=== PATIENT | female | born 2005 | race Caucasian/White ===

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

== ENCOUNTER 2023-01-07 15:56 | Observation (INO) | payer OTHER ==
--- NOTE | 2023-01-07 17:46 | ED ---
General Adult HPI - General Source: patient Mode of arrival: ambulatory Limitations: no limitations <Davina Mchugh - Last Filed: 01/07/23 17:46> <Birgit Celeste - Last Filed: 01/07/23 22:35> - General Chief complaint: Nausea/Vomiting/Diarrhea Stated complaint: Nausea Time Seen by Provider: 01/07/23 17:46 - History of Present Illness Initial comments: 17-year-old female resents to the emergency department with chief complaint of generalized body aches, nausea, vomiting. She reports she is appro ximately 11 weeks . Denies vaginal bleeding vaginal cramping or back pain. (Davina Mchugh) Patient is a 17-year-old female 11 weeks who presents to the emergency department for intractable nausea and vomiting. I have evaluated this patient in the emergency department numerous times for intractable nausea and vomiting during . Patient follows a Dr. Ziegler she is prescribed Reglan and Zofran which are not working. She was recently prescribed promethazine however states now the pharmacies have it in stock. Patient states her vomiting is wo rse than ever before. She reports generalized body aches. She denies abdominal pain and vaginal bleeding. No fever chills or cold-like symptoms. No diarrhea or constipation. (Birgit Celeste) - Related Data Home Medications Medication Instructions Recorded Confirmed Famotidine [Pepcid] 20 mg PO BID 01/07/23 01/07/23 Metoclopramide HCl [Reglan] 5 mg PO Q8H PRN 01/07/23 01/07/23 Ondansetron Odt [Zofran Odt] 8 mg PO Q8HR PRN 01/07/23 01/07/23 Allergies Allergy/AdvReac Type Severity Reaction Status Date / Time No Known Allergies Allergy Verified 01/07/23 20:53 Review of Systems ROS Other: All systems not noted in ROS Statement are negative. <Davina Mchugh - Last Filed: 01/07/23 17:46> ROS Other: All systems not noted in ROS Statement are negative. <Birgit Celeste - Last Filed: 01/07/23 22:35> ROS Statement: Those systems with pertinent positive or pertinent negative responses have been documented in the HPI. Past Medical History Past Medical History: No Reported History History of Any Multi-Drug Resistant Organisms: None Reported Past Surgical History: No Surgical Hx Reported Past Anesthesia/Blood Transfusion Reactions: No Reported Reaction Past Psychological History: Depression Smoking Status: Never smoker Past Alcohol Use History: None Reported Past Drug Use History: None Reported <Davina cMhugh - Last Filed: 01/07/23 17:46> General Exam Limitations: no limitations <Davina Mchugh - Last Filed: 01/07/23 17:46> General appearance: alert, in no apparent distress Head exam: Present: atraumatic, normocephalic, normal inspection Eye exam: Present: PERRL, EOMI, scleral icterus, other (periorbital jaundice) Respiratory exam: Present: normal lung sounds bilaterally. Absent: respiratory distress, wheezes, rales, rhonchi, stridor Cardiovascular Exam: Present: regular rate, normal rhythm, normal heart sounds. Absent: systolic murmur, diastolic murmur, rubs, gallop, clicks GI/Abdominal exam: Present: soft, normal bowel sounds. Absent: distended, tenderness, guarding, rebound, rigid Neurological exam: Present: alert, oriented X3, CN II-XII intact Skin exam: Present: warm, dry, intact. Absent: normal color <Birgit Celeste - Last Filed: 01/07/23 22:35> - General Exam Comments Initial Comments: Visual Physical Exam Vital signs reviewed General: Well-appearing, nontoxic, no acute distress. Head: Normocephalic, atraumatic Eyes: PERRLA, EOMI ENT: Airway patent Chest: Nonlabored breathing Skin: No visual rash, normal skin tone Neuro: Alert and oriented 3 Musculoskeletal: No gross abnormalities (Davina Mchugh) Course Vital Signs 01/07/23 01/07/23 01/07/23 16:10 19:52 21:09 Temperature 97.8 F 98.4 F Pulse Rate 115 H 94 104 H Respiratory 18 16 18 Rate Blood Pressure 118/79 105/66 O2 Sat by Pulse 100 100 99 Oximetry 01/07/23 22:00 Temperature Pulse Rate 89 Respiratory 16 Rate Blood Pressure 120/73 O2 Sat by Pulse 99 Oximetry Medical Decision Making - Lab Data Result diagrams: 01/07/23 18:10 01/07/23 18:10 <Birgit Celeste - Last Filed: 01/07/23 22:35> - Medical Decision Making Was pt. sent in by a medical professional or institution (, [facility], BIOLOGICAL SCIENCES INSTRUCTOR, urgent care, hospital, or group home...) When possible be specific @ -No Did you speak to anyone other than the patient for history (EMS, parent, family, police, friend...)? What history was obtained from this source @ -No Did you review nursing and triage notes (agree or disagree)? Why? @ -I reviewed and agree with nursing and triage notes Were old charts reviewed (outside hosp., previous admission, EMS record, old EKG, old radiological studies, urgent care reports/EKG's, group home records)? Report findings @ -No old charts were reviewed Differential Diagnosis (chest pain, altered mental status, abdominal pain women, abdominal pain men, vaginal bleeding, weakness, fever, dyspnea, syncope, headache, dizziness, GI bleed, back pain, seizure, CVA, palpatations, mental health)? @ -Hyperemesis gravidarum, cyclic vomiting syndrome, bowel obstruction, upper respiratory infection, cholecystitis, cholestasis, cholelithiasis. This list is not mentally all-inclusive EKG interpreted by me (3pts min.). @ -As above X-rays interpreted by me (1pt min.). @ -None done CT interpreted by me (1pt min.). @ -None done U/S interpreted by me (1pt. min.). @ . Ultrasound report shows gallbladder sludge without evidence of cholelithiasis or cholecystitis What testing was considered but not performed or refused? (CT, X-rays, U/S, labs)? Why? @ -None What meds were considered but not given or refused? Why? @ -None Did you discuss the management of the patient with other professionals (professionals i.e. [facility], BIOLOGICAL SCIENCES INSTRUCTOR, lab, RT, psych nurse, healthcare social worker, product support sales representative, teacher, global safety officer, pillowcase cutter)? Give summary @ -Yes, Dr. Day. See hospital course. Was smoking cessation discussed for >3mins.? @ -No Was critical care preformed (if so, how long)? @ -No Were there social determinants of health that impacted care today? How? (Homelessness, low income, unemployed, alcoholism, drug addiction, tr ansportation, low edu. Level, literacy, decrease access to med. care, [facility] [facility], rehab)? @ -No Was there de-escalation of care discussed even if they declined (Discuss DNR or withdrawal of care, Hospice)? DNR status @ -No What co-morbidities impacted this encounter? (DM, HTN, Smoking, COPD, CAD, Cancer, CVA, ARF, Chemo, Hep., AIDS, mental health diagnosis, sleep apnea, morbid obesity)? @ -None Was patient admitted / discharged? Hospital course, mention meds given and route, prescriptions, significant lab abnormalities, going to OR and other pertinent info. @ -Patient presenting for intractable nausea and vomiting during first trimester . She is hemodynamically stable. Afebrile. There is mild scleral icterus and periorbital jaundice. Patient denies any itching. No abdominal pain and vaginal bleeding. Laboratory studies obtained. There is no leukocytosis. There is mild hypokalemia at 3.3. There is anion gap Metabolic acidosis, consistent with previous visits. Carbon dioxide is 16, anion gap at 23. Bilirubin is significantly elevated at 4.2. Liver enzymes are also elevated, AST is 74, ALT at 127. Vomiting controlled with several nausea medications in the emergency department. Patient given fluid bolus. I discussed case with Dr. Day who will keep patient for observation. She recommended Compazine suppositories and repeat l abs in the morning. Patient admitted in stable condition. Undiagnosed new problem with uncertain prognosis? @ -[No] Drug Therapy requiring intensive monitoring for toxicity (Heparin, Nitro, Insulin, Cardizem)? @ -[No] Were any procedures done? @ -[No] Diagnosis/symptom? @ -Hyperemesis gravidarum Acute, or Chronic, or Acute on Chronic? @ -Acute Uncomplicated (without systemic symptoms) or Complicated (systemic symptoms)? @ -Uncomplicated Side effects of treatment? @ -[No] Exacerbation, Progression, or Severe Exacerbation? @ -[No] Poses a threat to life or bodily function? How? (Chest pain, USA, PR, pneumonia, PE, COPD, DKA, ARF, appy, cholecystitis, CVA, Diverticulitis, Homicidal, Suicidal, threat to staff... and all critical care pts) @ -[No] Dr. Whitaker is my attending (Birgit Celeste) - Lab Data Lab Results 01/07/23 01/07/23 01/07/23 Range/Units 18:10 18:10 18:10 WBC 9.6 (4.0-11.0) k/uL RBC 5.28 (3.80-5.40) m/uL Hgb 16.4 H (11.4-16.0) gm/dL Hct 44.2 (34.0-46.0) % MCV 83.8 (80.0-100.0) fL MCH 31.2 (25.0-35.0) pg MCHC 37.2 H (31.0-37.0) g/dL RDW 13.0 (11.5-15.5) % Plt Count 429 (150-450) k/uL MPV 7.7 Neutrophils % 82 % Lymphocytes % 11 % Monocytes % 5 % Eosinophils % 0 % Basophils % 0 % Neutrophils # 7.9 H (1.3-7.7) k/uL Lymphocytes # 1.1 (1.0-4.8) k/uL Monocytes # 0.5 (0-1.0) k/uL Eosinophils # 0.0 (0-0.7) k/uL Basophils # 0.0 (0-0.2) k/uL Hyperchromasia Marked Poikilocytosis Slight Sodium 135 L (137-145) mmol/L Potassium 3.3 L (3.5-5.1) mmol/L Chloride 96 L (98-107) mmol/L Carbon Dioxide 16 L (22-30) mmol/L Anion Gap 23 mmol/L BUN 7 (7-17) mg/dL Creatinine 0.52 (0.52-1.04) mg/dL Est GFR (CKD-EPI)AfAm >90 (>60 ml/min/1.73 sqM) Est GFR (CKD-EPI)NonAf >90 (>60 ml/min/1.73 sqM) Glucose 101 H (74-99) mg/dL Calcium 10.6 H (8.4-10.2) mg/dL Total Bilirubin 4.2 H (0.2-1.3) mg/dL AST 74 H (14-36) U/L ALT 127 H (4-34) U/L Alkaline Phosphatase 113 (38-126) U/L Total Protein 8.8 H (6.3-8.2) g/dL Albumin 5.3 H (3.5-5.0) g/dL Urine Color Urine Appearance (Clear) Urine pH (5.0-8.0) Ur Specific Carlock (1.001-1.035) Urine Protein (Negative) Urine Glucose (UA) (Negative) Urine Ketones (Negative) Urine Blood (Negative) Urine Nitrite (Negative) Urine Bilirubin (Negative) Urine Urobilinogen (<2.0) mg/dL Ur Leukocyte Esterase (Negative) Urine RBC (0-5) /hpf Urine WBC (0-5) /hpf Ur Squamous Epith Cells (0-4) /hpf Urine Bacteria (None) /hpf Hyaline Casts (0-2) /lpf Urine Mucus (None) /hpf Influenza Type A (PCR) Not Detected (Not Detectd) Influenza Type B (PCR) Not Detected (Not Detectd) RSV (PCR) Not Detected (Not Detectd) SARS-CoV-2 (PCR) Not Detected (Not Detectd) 01/07/23 Range/Units 19:20 WBC (4.0-11.0) k/uL RBC (3.80-5.40) m/uL Hgb (11.4-16.0) gm/dL Hct (34.0-46.0) % MCV (80.0-100.0) fL MCH (25.0-35.0) pg MCHC (31.0-37.0) g/dL RDW (11.5-15.5) % Plt Count (150-450) k/uL MPV Neutrophils % % Lymphocytes % % Monocytes % % Eosinophils % % Basophils % % Neutrophils # (1.3-7.7) k/uL Lymphocytes # (1.0-4.8) k/uL Monocytes # (0-1.0) k/uL Eosinophils # (0-0.7) k/uL Basophils # (0-0.2) k/uL Hyperchromasia Poikilocytosis Sodium (137-145) mmol/L Potassium (3.5-5.1) mmol/L Chloride (98-107) mmol/L Carbon Dioxide (22-30) mmol/L Anion Gap mmol/L BUN (7-17) mg/dL Creatinine (0.52-1.04) mg/dL Est GFR (CKD-EPI)AfAm (>60 ml/min/1.73 sqM) Est GFR (CKD-EPI)NonAf (>60 ml/min/1.73 sqM) Glucose (74-99) mg/dL Calcium (8.4-10.2) mg/dL Total Bilirubin (0.2-1.3) mg/dL AST (14-36) U/L ALT (4-34) U/L Alkaline Phosphatase (38-126) U/L Total Protein (6.3-8.2) g/dL Albumin (3.5-5.0) g/dL Urine Color Dark Yellow Urine Appearance Cloudy H (Clear) Urine pH 6.0 (5.0-8.0) Ur Specific Carlock 1.031 (1.001-1.035) Urine Protein 2+ H (Negative) Urine Glucose (UA) Negative (Negative) Urine Ketones 4+ H (Negative) Urine Blood Trace H (Negative) Urine Nitrite Negative (Negative) Urine Bilirubin 2+ H (Negative) Urine Urobilinogen 12.0 (<2.0) mg/dL Ur Leukocyte Esterase Moderate H (Negative) Urine RBC 3 (0-5) /hpf Urine WBC 4 (0-5) /hpf Ur Squamous Epith Cells 8 H (0-4) /hpf Urine Bacteria Rare H (None) /hpf Hyaline Casts 7 H (0-2) /lpf Urine Mucus Few H (None) /hpf Influenza Type A (PCR) (Not Detectd) Influenza Type B (PCR) (Not Detectd) RSV (PCR) (Not Detectd) SARS-CoV-2 (PCR) (Not Detectd) Disposition <Davina Mchugh - Last Filed: 01/07/23 17:46> <Birgit Celeste - Last Filed: 01/07/23 22:35> Clinical Impression: Hyperemesis gravidarum Disposition: ADMITTED IP TO THIS HOSP Condition: Stable
[2023-01-07] MEDS ORDERED: SODIUM CHLORIDE 0.9% 1,000 ML IV STA ×3 (18:14→20:28)
[2023-01-07] MEDS ORDERED: PYRIDOXINE 100 MG/ML 1 ML VIAL IVP STA (18:15)
[2023-01-07] MEDS ORDERED: diphenhydrAMINE 50 MG/ML 1 ML VIAL IVP STA (18:15)
[2023-01-07] MEDS ORDERED: METOCLOPRAMIDE 5 MG/ML 2 ML VIAL IVP STA (18:16)
[2023-01-07] MEDS ORDERED: ACETAMINOPHEN IV (For NPO) 1,000 MG in EMPTY BAG 1 BAG IVPB STA (18:30)
[2023-01-07 18:53] LABS: Chloride 96 mmol/L (98-107)
[2023-01-07 18:55] LABS: ALT 127 U/L (4-34); AST 74 U/L (14-36); African American GFR (CKD) >90 (>60 ml/min/1.73 sqM); Albumin 5.3 g/dL (3.5-5.0); Alkaline Phosphatase 113 U/L (38-126); Anion Gap 23 mmol/L; Blood Urea Nitrogen 7 mg/dL (7-17); Calcium 10.6 mg/dL (8.4-10.2); Carbon Dioxide 16 mmol/L (22-30); Glucose 101 mg/dL (74-99); Non-African American GFR(CKD) >90 (>60 ml/min/1.73 sqM); Potassium 3.3 mmol/L (3.5-5.1); Sodium 135 mmol/L (137-145); Total Bilirubin 4.2 mg/dL (0.2-1.3); Total Protein 8.8 g/dL (6.3-8.2)
[2023-01-07 19:26] LABS: Basophils % (A) 0 %; Eosinophils % (A) 0 %; HCT 44.2 % (34.0-46.0); HGB 16.4 gm/dL (11.4-16.0); Hyperchromasia Marked; Lymphocytes # (A) 1.1 k/uL (1.0-4.8); Lymphocytes % (A) 11 %; MCH 31.2 pg (25.0-35.0); MCHC 37.2 g/dL (31.0-37.0); MCV 83.8 fL (80.0-100.0); Mean Platelet Volume 7.7; Monocytes # (A) 0.5 k/uL (0-1.0); Monocytes % (A) 5 %; Neutrophils # (A) 7.9 k/uL (1.3-7.7); Neutrophils % (A) 82 %; Platelet Count 429 k/uL (150-450); Poikilocytosis Slight; RBC 5.28 m/uL (3.80-5.40); WBC 9.6 k/uL (4.0-11.0)
[2023-01-07 19:39] LABS: Appearance,Urine Cloudy (Clear); Bacteria,Urine Rare /hpf; Bilirubin,Urine 2+ (Negative); Blood,Urine Trace (Negative); Color,Urine Dark Yellow; Glucose,Urine (UA) Negative (Negative); Hyaline Casts,Urine 7 /lpf (0-2); Ketones,Urine 4+ (Negative); Leukocyte Esterase,Urine Moderate (Negative); Mucus,Urine Few /hpf; Nitrite,Urine Negative (Negative); Protein,Urine 2+ (Negative); RBC,Urine 3 /hpf (0-5); Specific Gravity,Urine 1.031 (1.001-1.035); Squamous Epithelial Cell,Urine 8 /hpf (0-4); WBC,Urine 4 /hpf (0-5)
--- NOTE | 2023-01-07 19:59 | US ---
EXAMINATION TYPE: US abdomen limited DATE OF EXAM: 01/07/2023 COMPARISON: NONE CLINICAL INDICATION: Female, 17 years old with history of vomiting during , elevated bilirub in; N/V with . TECHNIQUE: Multiple sonographic images of the right upper quadrant are obtained. FINDINGS: EXAM MEASUREMENTS: Liver Length: 15.3 cm Gallbladder Wall: 0.1 cm CBD: 0.2 cm Right Kidney: 10.7 x 4.8 x 3.3 cm PROTEOMICS SCIENTIST NOTES: Pancreas: wnl Liver: wnl Gallbladder: Filled with sludge Evidence for sonographic Lyon's sign: No CBD: wnl Right Kidney: wnl Pancreas is within normal limits. The liver is within normal limits for evidence of focal lesion. Gal lbladder is sludge-filled without evidence of shadowing calculi, wall thickening, or pericholecystic fluid. Per utilization review rn, negative sonographic Lyon sign. Common bile duct within normal limits. Righ t kidney is unremarkable without evidence of hydronephrosis, renal calculi, or contour deforming justyna d mass. IMPRESSION: Gallbladder sludge without evidence for acute cholecystitis.
[2023-01-07] MEDS ORDERED: SCOPOLAMINE 1 MG/72 HR PATCH TRANSDERM STA (20:26)
[2023-01-07] MEDS ORDERED: PROCHLORPERAZINE SUPPOSITORY 25 MG SUPP RECTAL PRN (21:00)
[2023-01-07] MEDS ORDERED: diphenhydrAMINE 50 MG/ML 1 ML VIAL IVP PRN (23:19)
[2023-01-07] MEDS ORDERED: Potassium Replacement Protocol 1 EACH MISC MISCELLANE PRN (23:20)
[2023-01-07] MEDS: POTASSIUM CHLORIDE 10 MEQ in WATER FOR INJECTION 1 100ML.BAG IVPB SCH (23:36)
--- NOTE | 2023-01-07 23:36 | P.HPOB ---
History of Present Illness H&P Date: 01/07/23 Chief Complaint: hyperemesis gravidarum 17 year old presents at about 11 weeks gestation complaining of nausea and vomiting. She has been treated outpatient with zofran and reglan which are no longer helping. Last US was at 6 weeks. Review of Systems All systems: negative Constitutional: Denies chills, Denies fever Eyes: denies blurred vision, denies pain Ears, nose, mouth and throat: Denies headache, Denies sore throat Cardiovascular: Denies chest pain, Denies shortness of breath Respiratory: Denies cough Gastrointestinal: Reports nausea, Reports vomiting, Denies abdominal pain, Denies diarrhea Genitourinary: Denies dysuria, Denies hematuria Musculoskeletal: Denies myalgias Integumentary: Denies pruritus, Denies rash Neurological: Denies numbness, Denies weakness Psychiatric: Denies anxiety, Denies depression Endocrine: Denies fatigue, Denies weight change Past Medical History Past Medical History: No Reported History History of Any Multi-Drug Resistant Organisms: None Reported Past Surgical History: No Surgical Hx Reported Past Anesthesia/Blood Transfusion Reactions: No Reported Reaction Past Psychological History: Depression Smoking Status: Vaper Past Alcohol Use History: None Reported Past Drug Use History: Marijuana Additional Drug Use History / Comment(s): patient states she stopped vaping and marijuana use when she found out she was . - Past Family History Mother Family Medical History: No Reported History Father Family Medical History: No Reported History Medications and Allergies Home Medications Medication Instructions Recorded Confirmed Type Famotidine [Pepcid] 20 mg PO BID 01/07/23 01/07/23 History Metoclopramide HCl [Reglan] 5 mg PO Q8H PRN 01/07/23 01/07/23 History Ondansetron Odt [Zofran Odt] 8 mg PO Q8HR PRN 01/07/23 01/07/23 History Allergies Allergy/AdvReac Type Severity Reaction Status Date / Time No Known Allergies Allergy Verified 01/07/23 20:53 Exam Osteopathic Statement: *. No significant issues noted on an osteopathic structural exam other than those noted in the History and Physical/Consult. Vital Signs Temp Pulse Pulse Resp BP BP Pulse Ox 01/07/23 22:16 98.5 F 94 18 123/73 98 01/07/23 22:00 89 16 120/73 99 01/07/23 21:09 104 H 18 99 01/07/23 19:52 98.4 F 94 16 105/66 100 01/07/23 16:10 97.8 F 115 H 18 118/79 100 Intake and Output 01/07/23 01/07/23 01/08/23 14:59 22:59 06:59 Output Total 5 Balance -5 Output: Emesis 5 Other: Weight 68.039 kg Heart: Regular rate and rhythm Lungs: Clear to auscultation bilaterally Abdomen: Soft, nontender Extremities: Negative Homans sign Results Result Diagrams: 01/07/23 18:10 01/07/23 18:10 Abnormal Lab Results - Last 24 Hours (Table) 01/07/23 01/07/23 01/07/23 Range/Units 18:10 18:10 19:20 Hgb 16.4 H (11.4-16.0) gm/dL MCHC 37.2 H (31.0-37.0) g/dL Neutrophils # 7.9 H (1.3-7.7) k/uL Sodium 135 L (137-145) mmol/L Potassium 3.3 L (3.5-5.1) mmol/L Chloride 96 L (98-107) mmol/L Carbon Dioxide 16 L (22-30) mmol/L Glucose 101 H (74-99) mg/dL Calcium 10.6 H (8.4-10.2) mg/dL Total Bilirubin 4.2 H (0.2-1.3) mg/dL AST 74 H (14-36) U/L ALT 127 H (4-34) U/L Total Protein 8.8 H (6.3-8.2) g/dL Albumin 5.3 H (3.5-5.0) g/dL Urine Appearance Cloudy H (Clear) Urine Protein 2+ H (Negative) Urine Ketones 4+ H (Negative) Urine Blood Trace H (Negative) Urine Bilirubin 2+ H (Negative) Ur Leukocyte Esterase Moderate H (Negative) Ur Squamous Epith Cells 8 H (0-4) /hpf Urine Bacteria Rare H (None) /hpf Hyaline Casts 7 H (0-2) /lpf Urine Mucus Few H (None) /hpf Assessment and Plan (1) Hyperemesis gravidarum Current Visit: Yes Status: Acute Code(s): O21.0 - MILD HYPEREMESIS GRAVIDARUM SNOMED Code(s): 88403000 (2) Hypokalemia Current Visit: Yes Status: Acute Code(s): E87.6 - HYPOKALEMIA SNOMED Code(s): 57717545 Plan: 1. admit to [facility] 2. IV fluids 3. antiemetics
[2023-01-08] MEDS ORDERED: METOCLOPRAMIDE 5 MG/ML 2 ML VIAL IVP SCH
[2023-01-08] MEDS: POTASSIUM CHLORIDE 10 MEQ in WATER FOR INJECTION 1 100ML.BAG IVPB SCH ×3 (01:53→05:26)
[2023-01-08] MEDS: ONDANSETRON 4 MG/2 ML VIAL IVP PRN ×4 (03:12→22:10)
[2023-01-08 04:34] VITALS: RESP 16
[2023-01-08] MEDS: METOCLOPRAMIDE 5 MG/ML 2 ML VIAL IVP PRN ×3 (05:26→18:53)
[2023-01-08] MEDS: SODIUM CHLORIDE 0.9% 1,000 ML IV SCH ×3 (05:35→21:20)
[2023-01-08 09:09] LABS: Appearance,Urine Clear (Clear); Bilirubin,Urine 2+ (Negative); Blood,Urine Negative (Negative); Color,Urine Brown; Glucose,Urine (UA) Negative (Negative); Ketones,Urine 4+ (Negative); Leukocyte Esterase,Urine Negative (Negative); Mucus,Urine Few /hpf; Nitrite,Urine Negative (Negative); PH, Urine 6.5 (5.0-8.0); Protein,Urine 2+ (Negative); Specific Gravity,Urine 1.036 (1.001-1.035); Squamous Epithelial Cell,Urine 6 /hpf (0-4); Urobilinogen,Urine >12.0 mg/dL (<2.0); WBC,Urine 2 /hpf (0-5)
[2023-01-08 11:53] LABS: ALT 107 U/L (4-34); AST 67 U/L (14-36); African American GFR (CKD) >90 (>60 ml/min/1.73 sqM); Albumin 3.6 g/dL (3.5-5.0); Alkaline Phosphatase 74 U/L (38-126); Anion Gap 11 mmol/L; Blood Urea Nitrogen 6 mg/dL (7-17); Calcium 8.9 mg/dL (8.4-10.2); Carbon Dioxide 19 mmol/L (22-30); Chloride 102 mmol/L (98-107); Glucose 83 mg/dL (74-99); Non-African American GFR(CKD) >90 (>60 ml/min/1.73 sqM); Potassium 3.3 mmol/L (3.5-5.1); Sodium 132 mmol/L (137-145); Total Bilirubin 3.6 mg/dL (0.2-1.3); Total Protein 6.3 g/dL (6.3-8.2)
--- NOTE | 2023-01-08 14:30 | P.GSCN ---
History of Present Illness Consult date: 01/08/23 History of present illness: CHIEF COMPLAINT: Nausea and vomiting HISTORY OF PRESENT ILLNESS: This is a 17-year-old female who is at 11 weeks gestation complaining of nausea and vomiting. Patient reports that she has been dealing with vomiting since the beginning of her . She had been on Zofran and Reglan at home without improvement of her symptoms. Patient reports that she vomits up to 20 times a day. Her pain is located in the suprapubic area. She denies any right upper quadrant pain. She denies any fever chills or sweats. She has been having bowel movements. She was mildly tachycardic on admission. Ultrasound has shown evidence of gallbladder sludge. White count normal 9.6 she did have elevated total bilirubin of 4.2 and mildly elevated L FTs. Patient was able to eat breakfast this morning without vomiting. The last episode of emesis was at 3 AM. Patient reports having regular bowel movements. Denies any urinary symptoms. Patient denies any prior abdominal surgeries. PAST MEDICAL HISTORY: See below PAST SURGICAL HISTORY: See below MEDICATIONS: See below ALLERGIES: See below SOCIAL HISTORY: No illicit drug use. REVIEW OF SYSTEMS: CONSTITUTIONAL: Denies fever or chills. HEENT: Denies blurred vision, vision changes, or eye pain. Denies hemoptysis CARDIOVASCULAR: Denies chest pain or pressure. RESPIRATORY: No shortness of breath. GASTROINTESTINAL: See HPI for pertinent findings HEMATOLOGIC: Denies bleeding disorders. GENITOURINARY: Denies any blood in urine or increased urinary frequency. SKIN: Denies pruitis. Denies rash. PHYSICAL EXAM: VITAL SIGNS: Reviewed GENERAL: Well-developed in no acute distress. HEENT: No sclera icterus. Extraocular movements grossly intact. Moist buccal mucosa. Head is atraumatic, normocephalic. No nasal drainage. ABDOMEN: Soft. Nondistended. Tenderness to palpation in the suprapubic area NEUROLOGIC: Alert and oriented. Cranial nerves II through XII grossly intact. LABORATORY DATA: WBC is 9.6 Hgb 16.4 platelets 429 Na 132 potassium is 3.3 creatinine 0.46 Total bilirubin 4.2 down to 3.6 AST 74 down to 67 ALT 127 down to 107 alk phos 74 Urinalysis negative for infection Influenza, RSV and COVID-19 not detected IMAGING: Abdominal ultrasound shows gallbladder sludge without evidence for acute cholecystitis ASSESSMENT: 1. Hyperemesis 2. Gallbladder sludge without evidence of acute cholecystitis noted on abdominal ultrasound 3. Elevated total bilirubin and LFTs trending down 4. Hypokalemia patient received potassium supplements PLAN: -Further recommendations forthcoming per surgeon -Consult GI service regarding elevated total bilirubin and LFTs -Continue antiemetics -Repeat CMP in a.m. -Continue IV fluid -Continue regular diet -Check magnesium level due to recurrent hypokalemia Thank you for this consultation Physician Senior Ui Ux Designer note has been reviewed by physician. Signing provider agrees with the documented findings, assessment, and plan of care. I have personally seen and examined the patient, reviewed the SQUARING SHEAR OPERATOR /PAs history, exam and MDM and agree with the assessment and plan as written. Based on total visit time, I have performed more than 50% of the visit. As above: Patient with improving liver enzymes. No history of right upper quadrant abdominal pain. Await Dr. Rosado evaluation. Repeat labs tomorrow. Will follow. Past Medical History Past Medical History: No Reported History History of Any Multi-Drug Resistant Organisms: None Reported Past Surgical History: No Surgical Hx Reported Past Anesthesia/Blood Transfusion Reactions: No Reported Reaction Past Psychological History: Depression Smoking Status: Vaper Past Alcohol Use History: None Reported Past Drug Use History: Marijuana Additional Drug Use History / Comment(s): patient states she stopped vaping and marijuana use when she found out she was . - Past Family History Mother Family Medical History: No Reported History Father Family Medical History: No Reported History Medications and Allergies Home Medications Medication Instructions Recorded Confirmed Type Famotidine [Pepcid] 20 mg PO BID 01/07/23 01/07/23 History Metoclopramide HCl [Reglan] 5 mg PO Q8H PRN 01/07/23 01/07/23 History Ondansetron Odt [Zofran Odt] 8 mg PO Q8HR PRN 01/07/23 01/07/23 History Allergies Allergy/AdvReac Type Severity Reaction Status Date / Time No Known Allergies Allergy Verified 01/07/23 20:53 Surgical - Exam Vital Signs Temp Pulse Resp BP Pulse Ox 97.8 F 115 H 18 118/79 100 01/07/23 16:10 01/07/23 16:10 01/07/23 16:10 01/07/23 16:10 01/07/23 16:10 Results - Labs 01/07/23 18:10 01/08/23 18:04 Abnormal Lab Results - Last 24 Hours (Table) 01/07/23 01/07/23 01/07/23 Range/Units 18:10 18:10 19:20 Hgb 16.4 H (11.4-16.0) gm/dL MCHC 37.2 H (31.0-37.0) g/dL Neutrophils # 7.9 H (1.3-7.7) k/uL Sodium 135 L (137-145) mmol/L Potassium 3.3 L (3.5-5.1) mmol/L Chloride 96 L (98-107) mmol/L Carbon Dioxide 16 L (22-30) mmol/L BUN (7-17) mg/dL Creatinine (0.52-1.04) mg/dL Glucose 101 H (74-99) mg/dL Calcium 10.6 H (8.4-10.2) mg/dL Total Bilirubin 4.2 H (0.2-1.3) mg/dL AST 74 H (14-36) U/L ALT 127 H (4-34) U/L Total Protein 8.8 H (6.3-8.2) g/dL Albumin 5.3 H (3.5-5.0) g/dL Urine Appearance Cloudy H (Clear) Ur Specific [place] (1.001-1.035) Urine Protein 2+ H (Negative) Urine Ketones 4+ H (Negative) Urine Blood Trace H (Negative) Urine Bilirubin 2+ H (Negative) Ur Leukocyte Esterase Moderate H (Negative) Ur Squamous Epith Cells 8 H (0-4) /hpf Urine Bacteria Rare H (None) /hpf Hyaline Casts 7 H (0-2) /lpf Urine Mucus Few H (None) /hpf 01/08/23 01/08/23 Range/Units 07:30 10:51 Hgb (11.4-16.0) gm/dL MCHC (31.0-37.0) g/dL Neutrophils # (1.3-7.7) k/uL Sodium 132 L (137-145) mmol/L Potassium 3.3 L (3.5-5.1) mmol/L Chloride (98-107) mmol/L Carbon Dioxide 19 L (22-30) mmol/L BUN 6 L (7-17) mg/dL Creatinine 0.46 L (0.52-1.04) mg/dL Glucose (74-99) mg/dL Calcium (8.4-10.2) mg/dL Total Bilirubin 3.6 H (0.2-1.3) mg/dL AST 67 H (14-36) U/L ALT 107 H (4-34) U/L Total Protein (6.3-8.2) g/dL Albumin (3.5-5.0) g/dL Urine Appearance (Clear) Ur Specific [place] 1.036 H (1.001-1.035) Urine Protein 2+ H (Negative) Urine Ketones 4+ H (Negative) Urine Blood (Negative) Urine Bilirubin 2+ H (Negative) Ur Leukocyte Esterase (Negative) Ur Squamous Epith Cells 6 H (0-4) /hpf Urine Bacteria (None) /hpf Hyaline Casts (0-2) /lpf Urine Mucus Few H (None) /hpf Diabetes panel 01/07/23 01/08/23 Range/Units 18:10 10:51 Sodium 135 L 132 L (137-145) mmol/L Potassium 3.3 L 3.3 L (3.5-5.1) mmol/L Chloride 96 L 102 (98-107) mmol/L Carbon Dioxide 16 L 19 L (22-30) mmol/L BUN 7 6 L (7-17) mg/dL Creatinine 0.52 0.46 L (0.52-1.04) mg/dL Glucose 101 H 83 (74-99) mg/dL Calcium 10.6 H 8.9 (8.4-10.2) mg/dL AST 74 H 67 H (14-36) U/L ALT 127 H 107 H (4-34) U/L Alkaline Phosphatase 113 74 (38-126) U/L Total Protein 8.8 H 6.3 (6.3-8.2) g/dL Albumin 5.3 H 3.6 (3.5-5.0) g/dL Calcium panel 01/07/23 01/08/23 Range/Units 18:10 10:51 Calcium 10.6 H 8.9 (8.4-10.2) mg/dL Albumin 5.3 H 3.6 (3.5-5.0) g/dL Pituitary panel 01/07/23 01/08/23 Range/Units 18:10 10:51 Sodium 135 L 132 L (137-145) mmol/L Potassium 3.3 L 3.3 L (3.5-5.1) mmol/L Chloride 96 L 102 (98-107) mmol/L Carbon Dioxide 16 L 19 L (22-30) mmol/L BUN 7 6 L (7-17) mg/dL Creatinine 0.52 0.46 L (0.52-1.04) mg/dL Glucose 101 H 83 (74-99) mg/dL Calcium 10.6 H 8.9 (8.4-10.2) mg/dL Adrenal panel 01/07/23 01/08/23 Range/Units 18:10 10:51 Sodium 135 L 132 L (137-145) mmol/L Potassium 3.3 L 3.3 L (3.5-5.1) mmol/L Chloride 96 L 102 (98-107) mmol/L Carbon Dioxide 16 L 19 L (22-30) mmol/L BUN 7 6 L (7-17) mg/dL Creatinine 0.52 0.46 L (0.52-1.04) mg/dL Glucose 101 H 83 (74-99) mg/dL Calcium 10.6 H 8.9 (8.4-10.2) mg/dL Total Bilirubin 4.2 H 3.6 H (0.2-1.3) mg/dL AST 74 H 67 H (14-36) U/L ALT 127 H 107 H (4-34) U/L Alkaline Phosphatase 113 74 (38-126) U/L Total Protein 8.8 H 6.3 (6.3-8.2) g/dL Albumin 5.3 H 3.6 (3.5-5.0) g/dL
--- NOTE | 2023-01-08 15:00 | P.CONS ---
History of Present Illness - Reason for Consult Consult date: 01/08/23 Possible choledocholithiasis, hyperemesis Requesting physician: Gagandeep Kirkland - Chief Complaint Intractable nausea and vomiting - History of Present Illness This pleasant 17-year-old female who is approximately 11 weeks who had presented to the emergency department yesterday with complaints of intractable nausea and vomiting over the last several days which had gotten worse yesterday. Patient states yesterday she was unable to keep anything down, was feeling weak and dizzy. She was admitted to the OB floor given IV hydration and IV Zofran and IV Reglan with good improvement in symptoms. Patient was known to have elevated LFTs on admission, she underwent ultrasound of the gallbladder that showed gallbladder filled with sludge without acute cholecystitis, CBD within normal limits at 0.2 cm. Patient denies any abdominal pain, no right upper quadrant or epigastric pain. No previous history of gallbladder disease or gallbladder problems. Patient denies any history of liver disease, no recent changes in medications. She was on outpatient Zofran and Reglan without good symptom control. Patient was noted to be dehydrated also hyponatremic and hy pokalemic on admission. Admitting labs WBC 9.6 hemoglobin 16 hematocrit 44 platelet count 429,000 sodium 135 potassium 3.3 BUN 7 creatinine 0.5 total bilirubin 4.2 AST 74 ALT 127 alkaline phosphatase 113. Repeat labs today show total bilirubin 3.6 AST 67 ALT 107 alkaline phosphatase 74. Looking back at patient's prior lab history she had mild elevation of bilirubin, no prior elevation of AST are ALT. gastroenterology was consulted by general surgery for possible choledochal lithiasis, hyperemesis gravidarum. Patient is tolerating regular diet, no nausea and vomiting since she's been admitted to the hospital. Review of Systems REVIEW OF SYSTEMS: CARDIOPULMONARY: No chest pain or shortness of breath. Gastrointestinal: No abdominal pain. Intractable nausea and vomiting now improved. Patient has been eating since admission. No hematemesis, coffee- ground emesis. No rectal bleeding, or melena. GENITOURINARY: No dysuria or hematuria. MUSCULOSKELETAL: Reports normal range of motion., Joint pain. SKIN: No rashes. No jaundice. ENDOCRINE: No chills, fevers. No excessive weight gain or loss. No polydipsia or polyuria. PSYCHIATRIC: Unremarkable. NEUROLOGY: No change in mental status. Denies dizziness, headache. ENT: Vision unremarkable. CONSTITUTIONAL: No recent weight loss. No fever, chills, night sweats. Past Medical History Past Medical History: No Reported History History of Any Multi-Drug Resistant Organisms: None Reported Past Surgical History: No Surgical Hx Reported Past Anesthesia/Blood Transfusion Reactions: No Reported Reaction Past Psychological History: Depression Smoking Status: Vaper Past Alcohol Use History: None Reported Past Drug Use History: Marijuana Additional Drug Use History / Comment(s): patient states she stopped vaping and marijuana use when she found out she was . - Past Family History Mother Family Medical History: No Reported History Father Family Medical History: No Reported History Medications and Allergies Home Medications Medication Instructions Recorded Confirmed Type Famotidine [Pepcid] 20 mg PO BID 01/07/23 01/07/23 History Metoclopramide HCl [Reglan] 5 mg PO Q8H PRN 01/07/23 01/07/23 History Ondansetron Odt [Zofran Odt] 8 mg PO Q8HR PRN 01/07/23 01/07/23 History Allergies Allergy/AdvReac Type Severity Reaction Status Date / Time No Known Allergies Allergy Verified 01/07/23 20:53 Physical Exam Vitals: Vital Signs Temp Pulse Pulse Resp BP BP Pulse Ox 01/08/23 07:44 97.6 F 97 16 112/64 98 01/08/23 04:00 97.9 F 79 16 120/72 95 01/07/23 22:16 98.5 F 94 18 123/73 98 01/07/23 22:00 89 16 120/73 99 01/07/23 21:09 104 H 18 99 01/07/23 19:52 98.4 F 94 16 105/66 100 01/07/23 16:10 97.8 F 115 H 18 118/79 100 Intake and Output 01/07/23 01/08/23 01/08/23 22:59 06:59 14:59 Intake Total 500 Output Total 5 Balance -5 500 Intake: IV 500 Output: Emesis 5 Other: Weight 68.039 kg 64 kg General appearance: The patient is alert, oriented, appears in no acute distress. HET: Head is normocephalic and atraumatic. Conjunctiva pink. Sclera anicteric. Neck: Supple without lymphadenopathy. Trachea midline. Heart: S1 S2. Regular rate and rhythm. Lungs: Clear to auscultation. Abdomen: Soft, nontender, nondistended with bowel sounds. No guarding or rigidity. Skin: No rashes. No jaundice. Extremities: Normal skin color and turgor. No pedal edema. Neurological: No focal deficits. Alert and oriented x3. Results CBC & Chem 7: 01/07/23 18:10 01/08/23 10:51 Labs: Abnormal Lab Results - Last 24 Hours (Table) 01/07/23 01/07/23 01/07/23 Range/Units 18:10 18:10 19:20 Hgb 16.4 H (11.4-16.0) gm/dL MCHC 37.2 H (31.0-37.0) g/dL Neutrophils # 7.9 H (1.3-7.7) k/uL Sodium 135 L (137-145) mmol/L Potassium 3.3 L (3.5-5.1) mmol/L Chloride 96 L (98-107) mmol/L Carbon Dioxide 16 L (22-30) mmol/L BUN (7-17) mg/dL Creatinine (0.52-1.04) mg/dL Glucose 101 H (74-99) mg/dL Calcium 10.6 H (8.4-10.2) mg/dL Total Bilirubin 4.2 H (0.2-1.3) mg/dL AST 74 H (14-36) U/L ALT 127 H (4-34) U/L Total Protein 8.8 H (6.3-8.2) g/dL Albumin 5.3 H (3.5-5.0) g/dL Urine Appearance Cloudy H (Clear) Ur Specific [place] (1.001-1.035) Urine Protein 2+ H (Negative) Urine Ketones 4+ H (Negative) Urine Blood Trace H (Negative) Urine Bilirubin 2+ H (Negative) Ur Leukocyte Esterase Moderate H (Negative) Ur Squamous Epith Cells 8 H (0-4) /hpf Urine Bacteria Rare H (None) /hpf Hyaline Casts 7 H (0-2) /lpf Urine Mucus Few H (None) /hpf 01/08/23 01/08/23 Range/Units 07:30 10:51 Hgb (11.4-16.0) gm/dL MCHC (31.0-37.0) g/dL Neutrophils # (1.3-7.7) k/uL Sodium 132 L (137-145) mmol/L Potassium 3.3 L (3.5-5.1) mmol/L Chloride (98-107) mmol/L Carbon Dioxide 19 L (22-30) mmol/L BUN 6 L (7-17) mg/dL Creatinine 0.46 L (0.52-1.04) mg/dL Glucose (74-99) mg/dL Calcium (8.4-10.2) mg/dL Total Bilirubin 3.6 H (0.2-1.3) mg/dL AST 67 H (14-36) U/L ALT 107 H (4-34) U/L Total Protein (6.3-8.2) g/dL Albumin (3.5-5.0) g/dL Urine Appearance (Clear) Ur Specific [place] 1.036 H (1.001-1.035) Urine Protein 2+ H (Negative) Urine Ketones 4+ H (Negative) Urine Blood (Negative) Urine Bilirubin 2+ H (Negative) Ur Leukocyte Esterase (Negative) Ur Squamous Epith Cells 6 H (0-4) /hpf Urine Bacteria (None) /hpf Hyaline Casts (0-2) /lpf Urine Mucus Few H (None) /hpf Assessment and Plan (1) Transaminitis Narrative/Plan: An 17-year-old female 11 weeks with hyperemesis gravidarum who has failed outpatient treatment with oral Zofran and Reglan. Patient was having nausea vomiting over the last week or so, however progressively Worse over last 1-2 days requiring her to come in for further evaluation. Patient was noted to be dehydrated, with plus for ketones in her urine, she was hyponatremic and hypokalemic with notable elevated LFTs. Patient denies any history of gallbladder disease, no abdominal pain, no nausea or vomiting. No history of liver disease in the past. Gallbladder ultrasound shows gallbladder filled with sludge with no signs of acute cholecystitis and no gallstones are noted CPT are within normal limits at 0.2 cm. Unlikely were dealing with choledochal lithiasis, LFTs likely elevated related to hyperemesis. Will order hepatitis panel, CMV and Michelle-Gonzales IgM. Current Visit: Yes Status: Acute Code(s): R74.01 - ELEVATION OF LEVELS OF LIVER TRANSAMINASE LEVELS SNOMED Code(s): 360251647 (2) Hyperemesis gravidarum Current Visit: Yes Status: Acute Code(s): O21.0 - MILD HYPEREMESIS GRAVIDARUM SNOMED Code(s): 68367132 (3) Hypokalemia Current Visit: Yes Status: Acute Code(s): E87.6 - HYPOKALEMIA SNOMED Code(s): 27512426 Plan: 1. Continue symptomatic and supportive care 2. Continue IV fluids 3. Diet as tolerated 4. Antiemetics as ordered 5. Repeat CMP, hepatitis panel, CMV and EBV tomorrow 6. Replace potassium per protocol 7. Further recommendations forthcoming based on clinical course Thank you for this consultation, we'll continue to follow. Dr. Wilber Lion I agree with the dictator's note, documented as a scribe by Catrina Desai.
--- NOTE | 2023-01-08 17:11 | P.PN ---
Progress Note - Text Progress Note Date: 01/08/23 Late entry. Patient was seen earlier this morning and states no vomiting since 3 am. Was able to hold down breakfast. Abdominal pain better now. Patient has been admitted or seen in ER multiple times so far this due to vomiting. Will consult gen. surgery due to gallbladder sludge and elevated bilirubin along with elevated liver enzymes. Continue with potassium replacement and IV hydration. Compazine suppositories seem to be working. Patient did have prescription for Phenergan suppositories but it was on backorder from her pharmacy so she hadn't started it yet.
[2023-01-08] MEDS ORDERED: Potassium Replacement Protocol 1 EACH MISC MISCELLANE PRN ×3 (18:46→22:22)
[2023-01-08] MEDS: POTASSIUM CHLORIDE ER 20 MEQ TAB.ER PO SCH ×3 (19:05→22:48)
[2023-01-09] MEDS: POTASSIUM CHLORIDE ER 20 MEQ TAB.ER PO SCH (00:12)
[2023-01-09 02:44] LABS: ALT 108 U/L (4-34); AST 56 U/L (14-36); African American GFR (CKD) >90 (>60 ml/min/1.73 sqM); Albumin 3.2 g/dL (3.5-5.0); Alkaline Phosphatase 60 U/L (38-126); Anion Gap 7 mmol/L; Blood Urea Nitrogen 3 mg/dL (7-17); Calcium 8.4 mg/dL (8.4-10.2); Carbon Dioxide 20 mmol/L (22-30); Chloride 107 mmol/L (98-107); Glucose 79 mg/dL (74-99); Non-African American GFR(CKD) >90 (>60 ml/min/1.73 sqM); Potassium 4.1 mmol/L (3.5-5.1); Sodium 134 mmol/L (137-145); Total Bilirubin 1.5 mg/dL (0.2-1.3); Total Protein 5.5 g/dL (6.3-8.2)
[2023-01-09] MEDS: SODIUM CHLORIDE 0.9% 1,000 ML IV SCH (05:14)
[2023-01-09] MEDS: ONDANSETRON 4 MG/2 ML VIAL IVP PRN ×2 (07:17→13:06)
[2023-01-09 07:27] VITALS: BP 105/66; PULSE 80; TEMP 98.6
--- NOTE | 2023-01-09 08:56 | P.DS ---
Providers Date of admission: 01/07/23 20:29 Expected date of discharge: 01/09/23 Attending physician: Norma Rivers Consults: 01/08/23 08:47 Consult Physician Urgent Consulting Provider: Gagandeep Kirkland Consult Reason/Comments: Hyperemesis with gallbladder sludge and elevated bilirubin Do you want consulting provider notified?: Yes 01/08/23 12:23 Consult Physician Routine Consulting Provider: Heidi Lion Consult Reason/Comments: Possible choledocholithiasis, hyperemesis Do you want consulting provider notified?: Yes Primary care physician: Stated None Hospital Course: This is a 17-year-old female at approximately 13 weeks who presented with hyperemesis and dehydration. In addition she was noted to have elevated liver enzymes and elevated bilirubin. Abdominal ultrasound showed sludge in her gallbladder. Consultations were obtained with general surgery and GI. Potassium was replaced. Patient so far has not had any further vomiting since 3 AM yesterday. Her potassium levels are normal. Her liver enzymes are improving and her bilirubin is going down. Will await further recommendations from GI prior to discharge. Patient has an appointment with me in the next week or 2. I will give her prescription for Compazine suppositories. She is advised call the office or return to the hospital if she is unable to hold anything down for more than 24 hours. Patient Condition at Discharge: Stable Plan - Discharge Summary Discharge Rx Participant: Yes New Discharge Prescriptions: New Prochlorperazine Suppository [Compazine] 25 mg RECTAL Q12HR PRN #14 suppositor PRN Reason: Nausea Continue Metoclopramide HCl [Reglan] 5 mg PO Q8H PRN PRN Reason: Nausea And Vomiting Ondansetron Odt [Zofran ODT] 8 mg PO Q8HR PRN PRN Reason: Nausea And Vomiting Famotidine [Pepcid] 20 mg PO BID Discharge Medication List Famotidine [Pepcid] 20 mg PO BID 01/07/23 [History] Metoclopramide HCl [Reglan] 5 mg PO Q8H PRN 01/07/23 [History] Ondansetron Odt [Zofran ODT] 8 mg PO Q8HR PRN 01/07/23 [History] Prochlorperazine Suppository [Compazine] 25 mg RECTAL Q12HR PRN #14 suppositor 01/09/23 [Rx] Follow up Appointment(s)/Referral(s): None,Stated [Primary Care Provider] - 1-2 days Yareli Ziegler DO [Doctor of Osteopathic Medicine] - 1 Week Activity/Diet/Wound Care/Special Instructions: Activity as tolerated. Diet as tolerated. Discharge Disposition: HOME SELF-CARE
[2023-01-09] MEDS ORDERED: PANTOPRAZOLE 40 MG/10 ML VIAL IVP SCH (09:00)
[2023-01-09 10:40] LABS: Hepatitis A Antibody IgM Nonreactive (Nonreactive); Hepatitis B Surface Antigen Nonreactive (Nonreactive); Hepatitis C IgG Antibody Nonreactive (Nonreactive)
[2023-01-09 11:19] LABS: Hepatitis B Core IgM Nonreactive (Nonreactive)
--- NOTE | 2023-01-09 14:16 | P.PN ---
Subjective Progress Note Date: 01/09/23 CHIEF COMPLAINT: Hyperemesis HISTORY OF PRESENT ILLNESS: Patient reports no further nausea or vomiting. She denies any right upper quadrant abdominal pain. Her liver enzymes and total bilirubin are trending downwards. She is able to tolerate regular diet. Afebrile. She was seen by GI service who felt this is unlikely a choledocholithiasis. Hepatitis panel and CMV all nonreactive. Repeat potassium 4.1 total bili 1.5 AST 56 ALT 108 and alk phos 60 magnesium 1.7 PHYSICAL EXAM: VITAL SIGNS: Reviewed. GENERAL: Well-developed in no acute distress. HEENT: No sclera icterus. Extraocular movements grossly intact. Moist buccal mucosa. Head is atraumatic, normocephalic. ABDOMEN: Soft. Nondistended. No right upper quadrant tenderness. Suprapubic tenderness. NEUROLOGIC: Alert and oriented. Cranial nerves II through XII grossly intact. ASSESSMENT: 1. Hyperemesis and dehydration 2. Gallbladder sludge without evidence of acute cholecystitis noted on abdominal ultrasound. No abdominal pain in RUQ. 3. Elevated total bilirubin and LFTs trending down. Elevated liver enzymes likely reactive to hyperemesis 4. Hypokalemia resolved PLAN: -Patient can be discharged from surgical standpoint -Continue antiemetics -No surgical intervention planned Physician Service Associate note has been reviewed by physician. Signing provider agrees with the documented findings, assessment, and plan of care. Objective - Vital Signs Vital signs: Vital Signs Temp 98.6 F 01/09/23 07:23 Pulse 80 01/09/23 07:23 Resp 16 01/09/23 07:23 BP 105/66 01/09/23 07:23 Pulse Ox 98 01/09/23 07:23 FiO2 Intake & Output 01/08/23 01/09/23 01/09/23 18:59 06:59 18:59 Intake Total 1000 2800 Balance 1000 2800 Intake: IV 1000 2000 Oral 800 Other: Voiding Method Toilet # Voids 1 3 - Labs CBC & Chem 7: 01/07/23 18:10 01/09/23 02:14 Labs: Abnormal Lab Results - Last 24 Hours (Table) 01/08/23 01/08/23 01/09/23 Range/Units 18:04 21:32 02:14 Sodium 134 L (137-145) mmol/L Potassium 3.4 L 3.2 L (3.5-5.1) mmol/L Carbon Dioxide 20 L (22-30) mmol/L BUN 3 L (7-17) mg/dL Creatinine 0.39 L (0.52-1.04) mg/dL Total Bilirubin 1.5 H (0.2-1.3) mg/dL AST 56 H (14-36) U/L ALT 108 H (4-34) U/L Total Protein 5.5 L (6.3-8.2) g/dL Albumin 3.2 L (3.5-5.0) g/dL
--- NOTE | 2023-01-09 14:41 | P.PN ---
Subjective Progress Note Date: 01/09/23 Principal diagnosis: Hyperemesis, transaminitis This pleasant 17-year-old female who is approximately 11 weeks who had presented to the emergency department yesterday with complaints of intractable nausea and vomiting over the last several days which had gotten worse yesterday. Patient states yesterday she was unable to keep anything down, was feeling weak and dizzy. She was admitted to the OB floor given IV hydration and IV Zofran and IV Reglan with good improvement in symptoms. Patient was known to have elevated LFTs on admission, she underwent ultrasound of the gallbladder that showed gallbladder filled with sludge without acute cholecystitis, CBD within normal limits at 0.2 cm. Patient denies any abdominal pain, no right upper quadrant or epigastric pain. No previous history of gallbladder disease or gallbladder problems. Patient denies any history of liver disease, no recent changes in medications. She was on outpatient Zofran and Reglan without good symptom control. Patient was noted to be dehydrated also hyponatremic and hypokalemic on admission. Admitting labs WBC 9.6 hemoglobin 16 hematocrit 44 platelet count 429,000 sodium 135 potassium 3.3 BUN 7 creatinine 0.5 total bilirubin 4.2 AST 74 ALT 127 alkaline phosphatase 113. Repeat labs today show total bilirubin 3.6 AST 67 ALT 107 alkaline phosphatase 74. Looking back at patient's prior lab history she had mild elevation of bilirubin, no prior elevation of AST are ALT. gastroenterology was consulted by general surgery for possible choledochal lithiasis, hyperemesis gravidarum. Patient is tolerating regular diet, no nausea and vomiting since she's been admitted to the hospital. 01/09/2023: Patient seen and examined today as a follow-up. She states she is feeling much better. No abdominal pain, no nausea or vomiting. She's been tolerating a regular diet. Repeat labs continue to trend down. Total bilirubin 1.5 down from 3.6 AST 56 ALT 108 alkaline phosphatase 60. CMV IgM antibody nonreactive, acute hepatitis panel nonreactive. Michelle-Gonzales virus IgM currently pending. Plan is for discharge home today. Objective - Vital Signs Vital signs: Vital Signs Temp 98.6 F 01/09/23 07:23 Pulse 80 01/09/23 07:23 Resp 16 01/09/23 07:23 BP 105/66 01/09/23 07:23 Pulse Ox 98 01/09/23 07:23 FiO2 Intake & Output 01/08/23 01/09/23 01/09/23 18:59 06:59 18:59 Intake Total 1000 2800 Balance 1000 2800 Intake: IV 1000 2000 Oral 800 Other: Voiding Method Toilet # Voids 1 3 - Exam General appearance: The patient is alert, oriented, appears in no acute distress. HET: Head is normocephalic and atraumatic. Conjunctiva pink. Sclera anicteric. Neck: Supple without lymphadenopathy. Abdomen: Soft, nontender, nondistended with bowel sounds. No guarding or rigidity. Extremities: Normal skin color and turgor. No pedal edema Skin: No rashes, no jaundice Neurological: No focal deficits. Alert and oriented. - Labs CBC & Chem 7: 01/07/23 18:10 01/09/23 02:14 Labs: Abnormal Lab Results - Last 24 Hours (Table) 01/08/23 01/08/23 01/08/23 Range/Units 10:51 18:04 21:32 Sodium 132 L (137-145) mmol/L Potassium 3.3 L 3.4 L 3.2 L (3.5-5.1) mmol/L Carbon Dioxide 19 L (22-30) mmol/L BUN 6 L (7-17) mg/dL Creatinine 0.46 L (0.52-1.04) mg/dL Total Bilirubin 3.6 H (0.2-1.3) mg/dL AST 67 H (14-36) U/L ALT 107 H (4-34) U/L Total Protein (6.3-8.2) g/dL Albumin (3.5-5.0) g/dL 01/09/23 Range/Units 02:14 Sodium 134 L (137-145) mmol/L Potassium (3.5-5.1) mmol/L Carbon Dioxide 20 L (22-30) mmol/L BUN 3 L (7-17) mg/dL Creatinine 0.39 L (0.52-1.04) mg/dL Total Bilirubin 1.5 H (0.2-1.3) mg/dL AST 56 H (14-36) U/L ALT 108 H (4-34) U/L Total Protein 5.5 L (6.3-8.2) g/dL Albumin 3.2 L (3.5-5.0) g/dL Assessment and Plan (1) Transaminitis Narrative/Plan: An 17-year-old female 11 weeks with hyperemesis gravidarum who has failed outpatient treatment with oral Zofran and Reglan. Patient was having nausea vomiting over the last week or so, however progressively Worse over last 1-2 days requiring her to come in for further evaluation. Patient was noted to be dehydrated, with plus for ketones in her urine, she was hyponatremic and hypokalemic with notable elevated LFTs. Patient denies any history of gallbladder disease, no abdominal pain, no nausea or vomiting. No history of liver disease in the past. Gallbladder ultrasound shows gallbladder filled with sludge with no signs of acute cholecystitis and no gallstones are noted CPT are within normal limits at 0.2 cm. Unlikely were dealing with choledochal lithiasis, LFTs likely elevated related to hyperemesis. Will order hepatitis panel, CMV and Michelle-Gonzales IgM. CMV, acute hepatitis panel nonreactive. Continues with no abdominal pain, nausea and vomiting has improved. LFTs continue to improve, and were likely elevated reactive to hyperemesis and severe dehydration. No plans for any further workup at this time. Current Visit: Yes Status: Acute Code(s): R74.01 - ELEVATION OF LEVELS OF LIVER TRANSAMINASE LEVELS SNOMED Code(s): 671288214 (2) Hyperemesis gravidarum Current Visit: Yes Status: Acute Code(s): O21.0 - MILD HYPEREMESIS GRAVIDARUM SNOMED Code(s): 46469836 (3) Hypokalemia Current Visit: Yes Status: Acute Code(s): E87.6 - HYPOKALEMIA SNOMED Code(s): 08585417 Plan: 1. Continue symptomatic and supportive care 2. Diet as tolerated 3. Antiemetics as needed 4. EBV pending, CMV, hepatitis acute panel reviewed and nonreactive 5. No further workup indicated Thank you for this consultation, patient is clear from gastroenterology for discharge. Dr. Wilber Lion I agree with the dictator's note, documented as a scribe by Catrina Desai.
== END 2023-01-09 14:50 | disposition home or self-care (01) ==
LOC: EC 15:56 → 4FBP 20:29
PROVIDERS: ADMIT Obstetrics & Gynecology; ATTEND Obstetrics & Gynecology
DX: O21.1 Hyperemesis gravidarum with metabolic disturbance (principal); E86.0 Dehydration; O99.281 Endocrine, nutritional and metabolic diseases complicating pregnancy, first trimester; O26.611 Liver and biliary tract disorders in pregnancy, first trimester; K82.8 Other specified diseases of gallbladder; R74.01 Elevation of levels of liver transaminase levels; O99.341 Other mental disorders complicating pregnancy, first trimester; F32.A Depression, unspecified; Z3A.11 11 weeks gestation of pregnancy; Z20.822 Contact with and (suspected) exposure to COVID-19; Z79.899 Other long term (current) drug therapy
CPT/HCPCS: 96376 ×2; 96365; 96366; 96375 ×3; 96361; 99285; 36415; 86665; 80053 ×3; 80074; 83735; 84132; 85025; 81001 ×2; 86645; 87636; 76705; G0378 ×3; J1200; J3415; J2765 ×2; J2405 ×2; J3480 ×2; J0131; C9113

== ENCOUNTER 2023-07-05 16:18 | Outpatient (CLI) | payer OTHER ==
[2023-07-05 18:58] VITALS: BP 132/69; PULSE 111; RESP 16; TEMP 97.8
== END 2023-07-05 18:15 | disposition home or self-care (01) ==
LOC: FBPOP 16:18
PROVIDERS: ATTEND Obstetrics & Gynecology
DX: Z53.9 Procedure and treatment not carried out, unspecified reason (principal)
CPT/HCPCS: 59025; G0463; 99213

== ENCOUNTER 2023-07-07 21:21 | Inpatient (IN) | payer OTHER ==
[2023-07-07] MEDS ORDERED: TERBUTALINE 1 MG/ML VIAL SQ PRN (21:38)
[2023-07-07] MEDS ORDERED: CARBOPROST TROMETHAMINE 250 MCG/ML 1 ML AMP IM PRN (21:38)
[2023-07-07] MEDS ORDERED: LIDOCAINE 0.5% (PF) 5 MG/ML (50 ML SDV) SQ PRN (21:38)
[2023-07-07] MEDS ORDERED: OXYTOCIN 10 UNIT/ML 1 ML VIAL IM PRN (21:38)
[2023-07-07] MEDS ORDERED: miSOPROStoL 200 MCG TAB PO PRN (21:38)
[2023-07-07] MEDS ORDERED: TRANEXAMIC 1,000 MG/100ML-NACL 1,000 MG in EMPTY BAG 1 BAG IV PRN (21:38)
[2023-07-07] MEDS ORDERED: METHYLERGONOVINE 0.2 MG/ML 1 ML AMP IM PRN (21:38)
[2023-07-07] MEDS ORDERED: LACTATED RINGERS 1,000 ML IV SCH (21:45)
[2023-07-07] MEDS ORDERED: diphenhydrAMINE 25 MG CAP PO PRN (22:21)
[2023-07-07] MEDS ORDERED: bisacodyL 10 MG SUPP RECTAL PRN (22:21)
[2023-07-07] MEDS ORDERED: diphenhydrAMINE 50 MG/ML 1 ML VIAL IVP PRN (22:21)
[2023-07-07] MEDS ORDERED: HYDROCORTISONE 2.5% RECTAL CREAM 30 GM TUBE RECTAL PRN (22:21)
[2023-07-07] MEDS ORDERED: SIMETHICONE 80 MG CHEWABLE PO PRN (22:21)
[2023-07-07] MEDS ORDERED: BENZOCAINE/MENTHOL SPRAY 1 GM/SPRAY AEROSOL TOPICAL PRN (22:21)
[2023-07-07] MEDS ORDERED: ACETAMINOPHEN TAB 325 MG TAB PO PRN (22:21)
[2023-07-07] MEDS ORDERED: LANOLIN CREAM 5 GM TUBE TOPICAL PRN (22:21)
[2023-07-07] MEDS ORDERED: ZOLPIDEM 5 MG TAB PO PRN (22:21)
--- NOTE | 2023-07-07 22:27 | P.HPOB ---
History of Present Illness H&P Date: 07/07/23 Chief Complaint: Contractions Please note this is dictated post delivery due to the rapid course of her labor. This patient is a pleasant 17-year-old 2 para 1 female estimated date of confinement 07/30/2023 estimated gestational age 36-5/7 weeks who presents to labor and delivery with complaints of regular painful contractions. Patient was here this weekend was 4 cm dilated and now returns 7 cm dilated in active labor. care is per Dr. Pak appears to be complicated by marginal cord insertion patient has been followed with serial ultrasounds for growth and nonstress testing. care otherwise appears to been uncomplicated. Review of Systems Genitourinary: Reports Menstruation: Reports amenorrhea Past Medical History Past Medical History: No Reported History Additional Past Medical History / Comment(s): Previous term vaginal delivery baby boy History of Any Multi-Drug Resistant Organisms: None Reported Past Surgical History: No Surgical Hx Reported Past Anesthesia/Blood Transfusion Reactions: No Reported Reaction Past Psychological History: Depression Smoking Status: Never smoker Past Alcohol Use History: None Reported Past Drug Use History: Marijuana - Past Family History Mother Family Medical History: No Reported History Father Family Medical History: No Reported History Medications and Allergies Home Medications Medication Instructions Recorded Confirmed Type Vit No.179/Iron/Folic 1 tab PO DAILY 07/05/23 07/07/23 History [ Tablet] Allergies Allergy/AdvReac Type Severity Reaction Status Date / Time No Known Allergies Allergy Verified 07/05/23 17:02 Exam Intake and Output 07/07/23 07/07/23 07/07/23 06:59 14:59 22:59 Other: Weight 80.739 kg - OBG Physical Exam Abdomen: bowel sounds normal, no diffuse tenderness, no bruit present, no guarding noted, no hepatomegaly, no splenomegaly, no mass Vulva: both: normal Vagina: normal moisture, no discharge Cervix: no lesion (Cervix on admission is 9 cm dilated completely effaced 0 station), no discharge Uterus: enlarged Results blood work shows she is O positive, rubella immune, RPR is nonreactive, HIV is nonreactive, hepatitis B and C are negative, group B strep was negative Assessment and Plan Assessment: This is a pleasant 17-year-old 2 para 1 female 36-5/7 weeks' gestation in active labor with marginal cord insertion. Patient precipitously goes on to deliver a viable female infant. Please see dictated delivery note. Plan is routine care (1) 36 to 37 weeks gestation of Current Visit: Yes Status: Acute Code(s): NTO4883 - SNOMED Code(s): 409932447 (2) Active labor Current Visit: Yes Status: Acute Code(s): RMK4514 - SNOMED Code(s): 024647634 (3) Marginal insertion of umbilical cord Current Visit: Yes Status: Acute Code(s): UZN9493 - SNOMED Code(s): 34347592
[2023-07-07] MEDS ORDERED: OXYTOCIN 30 UNITS/500 ML NS 30 UNIT in SALINE 1 500ML.BAG IV SCH (22:30)
--- NOTE | 2023-07-07 22:30 | P.PROBDLV ---
Vaginal Delivery Note - . Vaginal Delivery Note: Normal spontaneous vaginal delivery viable female Apgars 9 and 9 delivery time was 2206 hrs. Please see dictated H&P for intimate details of this patient's admission. In brief summary this is a pleasant 17-year-old 2 para 1 female estimated gestational age 36-5/7 weeks who presents to labor and delivery with complaints of regular painful contractions started at 7:00 this evening. On admission patient is 7 cm dilated upon my arrival she is 9 cm dilated. She has artificial rupture membranes for clear fluid. Patiently immediately thereafter states that she has to push and pushes the head to the perineum. Posterior perineum was supported we have controlled delivery of 's head over the intact perineum. Infant's head is straight occiput anterior presentation. Mouth and nares are bulb suctioned. Is no evidence of nuchal cord. Patient then spontaneously delivers the anterior shoulder posterior shoulder and rest this infant's body. This is a vigorous viable female infant Apgars are 9 and 9 delivery time is 2206 hrs. Infant has spontaneous respiration and good cry and grossly appears normal. The umbilical cord is quite short is doubly clamped and cut the is laid on the mother's abdomen. The placenta is then spont aneously delivered intact. Does appear to have a marginal cord insertion. Inspection of the perineum shows a first-degree posterior laceration was repaired with 3-0 Vicryl usual fashion. Excellent reapproximation is noted. All counts are correct 3. There are no complications. Estimate blood loss is approximately 100 mL. Infant and mother stable delivery room.
[2023-07-07] MEDS: IBUPROFEN 600 MG TAB PO PRN (22:41)
[2023-07-08 00:07] LABS: Basophils % (A) 0 %; Eosinophils % (A) 0 %; HCT 38.2 % (34.0-46.0); HGB 13.2 gm/dL (11.4-16.0); Lymphocytes # (A) 1.5 k/uL (1.0-4.8); Lymphocytes % (A) 11 %; MCH 30.2 pg (25.0-35.0); MCHC 34.6 g/dL (31.0-37.0); MCV 87.4 fL (80.0-100.0); Mean Platelet Volume 8.1; Monocytes # (A) 0.4 k/uL (0-1.0); Monocytes % (A) 3 %; Neutrophils # (A) 11.3 k/uL (1.3-7.7); Neutrophils % (A) 85 %; Platelet Count 281 k/uL (150-450); Poikilocytosis Slight; RBC 4.37 m/uL (3.80-5.40); RDW 13.5 % (11.5-15.5); WBC 13.3 k/uL (4.0-11.0)
--- NOTE | 2023-07-08 06:32 | P.PNOBGVD ---
Subjective - Subjective Patient reports: Reports appetite normal, Reports voiding normally, Reports pain well controlled, Reports ambulating normally : doing well Objective - Latest Vital Signs Latest vital signs: Vital Signs Temp Pulse Resp BP Pulse Ox 07/08/23 04:00 98.4 F 87 15 113/70 97 07/08/23 00:23 97.5 F L 95 16 126/70 07/07/23 23:53 84 16 117/69 07/07/23 23:23 90 16 112/79 07/07/23 23:08 107 H 16 119/69 07/07/23 22:53 103 H 16 120/71 07/07/23 22:38 107 H 16 115/73 07/07/23 22:23 97.7 F 96 16 129/75 07/07/23 21:26 96.9 F L 112 H 16 126/59 99 Intake and Output 07/07/23 07/07/23 07/08/23 14:59 22:59 06:59 Intake Total 167 Output Total 100 135 Balance -100 32 Intake: Intake, IV Titration 167 Amount Oxytocin 30 Units/500 ml 167 Ns 30 unit In Saline 1 500ml.bag @ Per Protocol IV .Q0M [facility] Rx#:[id number] Output: Estimated Blood Loss 100 Output, Quantitative 135 Blood Loss Other: # Voids 1 1 Weight 80.739 kg - Exam Lungs: bilateral: normal Chest: Normal S1, Normal S2 Extremities: Present: normal Abdomen: Present: normal appearance, soft Uterus: Present: normal, firm - Labs Labs: Abnormal Lab Results - Last 24 Hours (Table) 07/07/23 Range/Units 21:36 WBC 13.3 H (4.0-11.0) k/uL Neutrophils # 11.3 H (1.3-7.7) k/uL Assessment and Plan Assessment: day #1. Patient is resting without complaints. Vital signs are stable she's afebrile. Uterus is firm nontender she's having normal lochia. My impression this is a normal post course. Plan is to continue routine care discharge home tomorrow. (1) 36 to 37 weeks gestation of Current Visit: Yes Status: Acute Code(s): DXE1494 - SNOMED Code(s): 838918540 (2) Active labor Current Visit: Yes Status: Acute Code(s): EJC8150 - SNOMED Code(s): 655142474 (3) Marginal insertion of umbilical cord Current Visit: Yes Status: Acute Code(s): EEG2563 - SNOMED Code(s): 84340694
[2023-07-08 07:20] LABS: Basophils % (A) 0 %; Eosinophils % (A) 0 %; HCT 35.9 % (34.0-46.0); HGB 12.2 gm/dL (11.4-16.0); Lymphocytes # (A) 1.4 k/uL (1.0-4.8); Lymphocytes % (A) 11 %; MCH 29.9 pg (25.0-35.0); MCV 88.1 fL (80.0-100.0); Mean Platelet Volume 8.1; Monocytes # (A) 0.6 k/uL (0-1.0); Monocytes % (A) 5 %; Neutrophils # (A) 10.6 k/uL (1.3-7.7); Neutrophils % (A) 83 %; Platelet Count 255 k/uL (150-450); RBC 4.08 m/uL (3.80-5.40); RDW 13.4 % (11.5-15.5); WBC 12.7 k/uL (4.0-11.0)
[2023-07-08] MEDS: SENNOSIDES-DOCUSATE SODIUM 1 EACH TAB PO SCH ×2 (08:29→21:39)
[2023-07-08 08:42] VITALS: RESP 16
[2023-07-09] MEDS: IBUPROFEN 600 MG TAB PO PRN
--- NOTE | 2023-07-09 06:31 | P.PNOBGVD ---
Subjective - Subjective Patient reports: Reports appetite normal, Reports voiding normally, Reports pain well controlled, Reports ambulating normally : doing well Objective - Latest Vital Signs Latest vital signs: Vital Signs Temp Pulse Resp BP Pulse Ox 07/09/23 00:00 98.3 F 100 16 102/67 98 07/08/23 15:38 98.4 F 83 16 115/74 07/08/23 12:00 98.4 F 77 16 109/69 07/08/23 08:00 98.3 F 87 16 109/64 Intake and Output 07/08/23 07/08/23 07/09/23 14:59 22:59 06:59 Other: # Voids 1 - Exam Lungs: bilateral: normal Chest: Normal S1, Normal S2 Extremities: Present: normal Abdomen: Present: normal appearance, soft Uterus: Present: normal, firm - Labs Labs: Abnormal Lab Results - Last 24 Hours (Table) 07/08/23 Range/Units 07:03 WBC 12.7 H (4.0-11.0) k/uL Neutrophils # 10.6 H (1.3-7.7) k/uL Assessment and Plan Assessment: day #2. Patient is resting without new complaints. Vital signs are stable she's afebrile. Uterus is firm nontender she's having normal lochia. My impression is a normal course. Plan is to continue routine care discharge home later today (1) 36 to 37 weeks gestation of Current Visit: Yes Status: Acute Code(s): BED1098 - SNOMED Code(s): 598051214 (2) Active labor Current Visit: Yes Status: Acute Code(s): POZ3098 - SNOMED Code(s): 427336618 (3) Marginal insertion of umbilical cord Current Visit: Yes Status: Acute Code(s): EHE1893 - SNOMED Code(s): 38533119
--- NOTE | 2023-07-09 06:35 | P.DS ---
Providers Date of admission: 07/07/23 21:33 Expected date of discharge: 07/09/23 Attending physician: Yareli Ziegler Primary care physician: Stated None - Discharge Diagnosis(es) (1) 36 to 37 weeks gestation of Current Visit: Yes Status: Acute (2) Active labor Current Visit: Yes Status: Acute (3) Marginal insertion of umbilical cord Current Visit: Yes Status: Acute Hospital Course: Please see dictated H&P for intimate details of this patient's admission. Brief summary this is a pleasant 17-year-old 2 para 1 female 36-5/7 weeks gestation admitted to labor and delivery in active labor. Patient quickly goes on to have a vaginal delivery viable female infant. Please see dictated delivery note. day #1 patient's doing well CBC is normal. day #2 she continues to well was felt be stable for discharge home follow up with Dr. Pak in 6 weeks Procedures: Normal spontaneous vaginal delivery Patient Condition at Discharge: Good Plan - Discharge Summary New Discharge Prescriptions: New Ibuprofen [Motrin] 600 mg PO Q6HR PRN #30 tab PRN Reason: Mild Pain (Scale 1 To 3) No Action Vit No.179/Iron/Folic [ Tablet] 1 tab PO DAILY Discharge Medication List Vit No.179/Iron/Folic [ Tablet] 1 tab PO DAILY 07/05/23 [History] Ibuprofen [Motrin] 600 mg PO Q6HR PRN #30 tab 07/09/23 [Rx] Follow up Appointment(s)/Referral(s): Yareli Ziegler DO [Doctor of Osteopathic Medicine] - 08/22/23 11:30 am Patient Instructions/Handouts: Vaginal Delivery (DC) Activity/Diet/Wound Care/Special Instructions: No intercourse or anything per vagina for 6 weeks. Please call if any fever, chills, excessive vaginal bleeding, and/or abdominal pain. Discharge Disposition: HOME SELF-CARE
[2023-07-09 09:10] VITALS: BP 101/63; PULSE 61; TEMP 97.7
[2023-07-09] MEDS: SENNOSIDES-DOCUSATE SODIUM 1 EACH TAB PO SCH (10:28)
--- NOTE | 2023-07-11 07:03 | P.MSEPDOC ---
Presenting Problems - Arrival Data Date of Arrival on Unit: 07/07/23 Time of Arrival on Unit: 21:22 Mode of Transport: Wheelchair - Complaint OB-Reason for Admission/Chief Complaint: Possible Onset of Labor Comment: Strong contractions started at 1900 Medical History - Information : 2 Para: 1 Term: 1 : 0 Abortions: Spontaneous or Elective: 0 Number of Living Children: 1 - Gestational Age Gestational Age by BECK (wks/days): 36 Weeks and 5 Days Review of Systems - Review of Systems Constitutional: No problems Breast: No problems ENT: No problems Cardiovascular: No problems Respiratory: No problems Gastrointestinal: No problems Genitourinary: No problems Musculoskeletal: No problems Neurological: No problems Skin: No problems Vital Signs - Temperature Temperature: 97.7 F Temperature Source: Oral - Pulse Right Sitting Pulse Rate: 61 Pulse Assessment Method: Automatic Cuff - Respirations Respiratory Rate: 16 Oxygen Delivery Method: Room Air - Blood Pressure Right Arm Sitting Blood Pressure: 101/63 Blood Pressure Mean: 75 Blood Pressure Source: Automatic Cuff Medical Screen Scoring - Cervical Exam Dilation (cm): 7 Effacement (%): 90 Station: -1 Membranes: Intact - Uterine Contractions Frequency From (mins): 2 Frequency To (mins): 3 Duration From (seconds): 50 Duration To (seconds): 70 Intensity: Mild - Assessment - Baby A Baseline FHR: 155 Heart Rate - NICHD Category: Category I (Normal) Physician Notification - Physician Notified Physician Notified Date: 07/07/23 Physician Notified Time: 21:31 Physician: Alonso Berrios New Order Received: Yes (admit for labor) Maternal Triage Index - Maternal Triage Index Presenting for scheduled procedure w/no complaint: No - Stat/Priority 1 Stat Priority 1: No - Urgent/Priority 2 Urgent Priority 2: Yes Provider Notified: Alonso Berrios Provider Notified Time: 21:31 Criteria Met for Priority 2: pt /-1 presence requested Disposition - Disposition OB Disposition: Admit, LDRP Suite Discharge Date: 07/09/23 Discharge Time: 11:05 I agree with the RN Medical Screening Exam: Yes Case reviewed; plan agreed upon as documented in EMR&OBIX.: Yes Diagnosis: RELATED CONDITIONS, UNSPECIFIED, THIRD TRIMESTER
== END 2023-07-09 11:05 | disposition home or self-care (01) | DRG 560 ==
LOC: FBPOP 21:21 → 4FBP 21:33
PROVIDERS: ADMIT Obstetrics & Gynecology; ATTEND Obstetrics & Gynecology
PROC: 10E0XZZ Delivery of Products of Conception, External Approach (ICD-10-PCS; principal; 2023-07-07)
PROC: 0HQ9XZZ Repair Perineum Skin, External Approach (ICD-10-PCS; 2023-07-07)
PROC: 10907ZC Drainage of Amniotic Fluid, Therapeutic from Products of Conception, Via Natural or Artificial Opening (ICD-10-PCS; 2023-07-07)
DX: O43.193 Other malformation of placenta, third trimester (principal); O70.0 First degree perineal laceration during delivery; F32.A Depression, unspecified; O99.344 Other mental disorders complicating childbirth; O60.14X0 Preterm labor third trimester with preterm delivery third trimester, not applicable or unspecified; Z37.0 Single live birth; Z3A.37 37 weeks gestation of pregnancy
CPT/HCPCS: 85025; 86850; 86900; 86901; 99213

== ENCOUNTER 2023-09-20 19:13 | Emergency (ER) | payer OTHER ==
[2023-09-20 19:34] VITALS: TEMP 98
--- NOTE | 2023-09-20 20:03 | ED ---
Chest Pain HPI - General Chief Complaint: Chest Pain Stated Complaint: Chest Pain Time Seen by Provider: 09/20/23 19:35 Source: patient Mode of arrival: ambulatory Limitations: no limitations - History of Present Illness Initial Comments: 17-year-old female presents emergency department for chest pain. States he feels a burning sensation over the central portion of her chest. It has been going on for the past couple days. Denies any provocative factors. States the pain is intermittent. Denies any associated nausea, vomiting or diaphoresis. No shortness of breath. No history of DVT or PE. No personal history of cardiac disease. She denies concern for . No fevers, chills or cough. Denies that it is a pleuritic pain. She has not taken anything [id number] for her symptoms. Is concerned that she may be getting an upper respiratory infection. No other alleviating, precipitatng or modifying factors - Related Data Home Medications Medication Instructions Recorded Confirmed Vit No.179/Iron/Folic 1 tab PO DAILY 07/05/23 07/07/23 [ Tablet] Previous Rx's Medication Instructions Recorded Ibuprofen [Motrin] 600 mg PO Q6HR PRN #30 tab 07/09/23 Famotidine [Zantac-360 10 mg PO DAILY #30 tab 09/21/23 (Famotidine)] Allergies Allergy/AdvReac Type Severity Reaction Status Date / Time No Known Allergies Allergy Verified 09/20/23 19:30 Review of Systems ROS Statement: Those systems with pertinent positive or pertinent negative responses have been documented in the HPI. ROS Other: All systems not noted in ROS Statement are negative. Past Medical History Past Medical History: No Reported History Additional Past Medical History / Comment(s): Previous term vaginal delivery baby boy History of Any Multi-Drug Resistant Organisms: None Reported Past Surgical History: No Surgical Hx Reported Past Anesthesia/Blood Transfusion Reactions: No Reported Reaction Past Psychological History: Depression Smoking Status: Vaper Past Alcohol Use History: None Reported Past Drug Use History: Marijuana - Past Family History Mother Family Medical History: No Reported History Father Family Medical History: No Reported History General Exam Limitations: no limitations General appearance: alert, in no apparent distress Head exam: Present: atraumatic, normocephalic, normal inspection Eye exam: Present: normal appearance, PERRL, EOMI. Absent: scleral icterus, conjunctival injection, periorbital swelling ENT exam: Present: normal exam, mucous membranes moist Neck exam: Present: normal inspection. Absent: tenderness, meningismus, lymphadenopathy Respiratory exam: Present: normal lung sounds bilaterally. Absent: respiratory distress, wheezes, rales, rhonchi, stridor Cardiovascular Exam: Present: regular rate, normal rhythm, normal heart sounds. Absent: systolic murmur, diastolic murmur, rubs, gallop, clicks GI/Abdominal exam: Present: soft, normal bowel sounds. Absent: distended, tenderness, guarding, rebound, rigid Extremities exam: Present: normal inspection, full ROM, normal capillary refill. Absent: tenderness, pedal edema, joint swelling, calf tenderness Back exam: Present: normal inspection Neurological exam: Present: alert, oriented X3, CN II-XII intact Psychiatric exam: Present: normal affect, normal mood Skin exam: Present: warm, dry, intact, normal color. Absent: rash Course Vital Signs 09/20/23 09/20/23 09/20/23 19:28 20:30 21:00 Temperature 98 F Pulse Rate 72 70 77 Respiratory 18 14 18 Rate Blood Pressure 126/84 112/66 122/77 O2 Sat by Pulse 98 100 100 Oximetry 09/20/23 09/20/23 09/20/23 21:30 22:00 23:00 Temperature Pulse Rate 73 65 64 Respiratory 18 18 17 Rate Blood Pressure 119/73 114/73 111/79 O2 Sat by Pulse 99 98 98 Oximetry 09/20/23 09/21/23 23:27 00:00 Temperature Pulse Rate 68 74 Respiratory 16 18 Rate Blood Pressure 117/69 110/74 O2 Sat by Pulse 99 98 Oximetry Chest Pain MDM - MDM Was pt. sent in by a medical professional or institution (, PA, BRASS PLATER, urgent care, hospital, or intermediate...) When possible be specific @ -No Did you speak to anyone other than the patient for history (EMS, parent, family, police, friend...)? What history was obtained from this source @ -No Did you review nursing and triage notes (agree or disagree)? Why? @ -I reviewed and agree with nursing and triage notes Were old charts reviewed (outside hosp., previous admission, EMS record, old EKG, old radiological studies, urgent care reports/EKG's, intermediate records)? Report findings @ -No old charts were reviewed Differential Diagnosis (chest pain, altered mental status, abdominal pain women, abdominal pain men, vaginal bleeding, weakness, fever, dyspnea, syncope, headache, dizziness, GI bleed, back pain, seizure, CVA, palpatations, mental health, musculoskeletal)? @ -Differential Chest Pain: Stable Angina, Unstable Angina, STEMI, NSTEMI Aortic Dissection, Pneumothorax, Musculoskeletal, Esophageal Spasm GERD, Cholecystitis, Pancreatitis, Zoster, this is not meant to be an all-inclusive list. EKG interpreted by me (3pts min.). @ -Yes and demonstrates sinus rhythm with a rate of 62. [place] interval 143. QRS 86. QTC 413. No acute ST segment elevations or depressions X-rays interpreted by me (1pt min.). @ -yes and demonstrates no acute intrathoracic process CT interpreted by me (1pt min.). @ -None done U/S interpreted by me (1pt. min.). @ -None done What testing was considered but not performed or refused? (CT, X-rays, U/S, labs)? Why? @ -None What meds were considered but not given or refused? Why? @ -Discussed pain medications to include Toradol however patient refused Did you discuss the management of the patient with other professionals (professionals i.e. , PA, BRASS PLATER, lab, RT, psych nurse, adoption social worker, physicist solid earth, teacher, interface control officer, case mgr)? Give summary @ -No Was smoking cessation discussed for >3mins.? @ -No Was critical care preformed (if so, how long)? @ -No Were there social determinants of health that impacted care today? How? (Homelessness, low income, unemployed, alcoholism, drug addiction, transportation, low edu. Level, literacy, decrease access to med. care, longterm, rehab)? @ -No Was there de-escalation of care discussed even if they declined (Discuss DNR or withdrawal of care, Hospice)? DNR status @ -No What co-morbidities impacted this encounter? (DM, HTN, Smoking, COPD, CAD, Cancer, CVA, ARF, Chemo, Hep., AIDS, mental health diagnosis, sleep apnea, morbid obesity)? @ -None Was patient admitted / discharged? Hospital course, mention meds given and route, prescriptions, significant lab abnormalities, going to OR and other pertinent info. @ -Discharged. Upon arrival patient placed in room 19. Thorough history and physical exam was performed. 12-lead EKG was obtained. Laboratory studies were conducted. Chest xray was performed. Results are discussed with the patient. Patient be discharged home at this time. Instructed to follow-up with her primary care doctor. Recommend echo and Holter monitoring. Return for any new or worsening symptoms. Patient will be trialed on Zantac because of her symptoms. Patient agreeable to the plan was discharged in stable condition Undiagnosed new problem with uncertain prognosis? @ -Yes Drug Therapy requiring intensive monitoring for toxicity (Heparin, Nitro, Insulin, Cardizem)? @ -No Were any procedures done? @ -No Diagnosis/symptom? @ -Acute atypical chest pain Acute, or Chronic, or Acute on Chronic? @ -acute Uncomplicated (without systemic symptoms) or Complicated (systemic symptoms)? @ -complicated Side effects of treatment? @ -No Exacerbation, Progression, or Severe Exacerbation? @ -No Poses a threat to life or bodily function? How? (Chest pain, [place], [place], pneumonia, PE, COPD, DKA, ARF, appy, cholecystitis, CVA, Diverticulitis, Homicidal, Suicidal, threat to staff... and all critical care pts) @ -No Disposition Clinical Impression: Chest pain Disposition: HOME SELF-CARE Condition: Stable Instructions (If sedation given, give patient instructions): Chest Pain (ED) Additional Instructions: Please follow-up with your primary care doctor and return for any new or worsening symptoms. I recommend an echo and holter monitoring Prescriptions: Famotidine [Zantac-360 (Famotidine)] 10 mg PO DAILY #30 tab Is patient prescribed a controlled substance at d/c from ED?: No Referrals: None,Stated [Primary Care Provider] - 1-2 days Time of Disposition: 23:39
--- NOTE | 2023-09-20 20:08 | XR ---
EXAMINATION TYPE: XR chest 2V DATE OF EXAM: 09/20/2023 7:53 PM CLINICAL INDICATION:Female, 17 years old with history of cough; COMPARISON: None TECHNIQUE: XR chest 2V Frontal and lateral views of the chest. FINDINGS: Lungs/Pleura: There is no evidence of pleural effusion, focal consolidation, or pneumothorax. Pulmonary vascularity: Unremarkable. Heart/mediastinum: Cardiomediastinal silhouette is unremarkable. Musculoskeletal: No acute osseous pathology. IMPRESSION: No acute cardiopulmonary disease/process.
[2023-09-20 22:11] LABS: Basophils # (A) 0.1 k/uL (0-0.2); Basophils % (A) 1 %; Eosinophils # (A) 0.1 k/uL (0-0.7); Eosinophils % (A) 2 %; HCT 41.3 % (34.0-46.0); HGB 14.2 gm/dL (11.4-16.0); Lymphocytes # (A) 1.6 k/uL (1.0-4.8); Lymphocytes % (A) 32 %; MCH 29.7 pg (25.0-35.0); MCHC 34.4 g/dL (31.0-37.0); MCV 86.4 fL (80.0-100.0); Mean Platelet Volume 6.9; Monocytes # (A) 0.2 k/uL (0-1.0); Monocytes % (A) 4 %; Neutrophils % (A) 60 %; Platelet Count 271 k/uL (150-450); RBC 4.78 m/uL (3.80-5.40); RDW 13.3 % (11.5-15.5)
[2023-09-20 22:29] LABS: ALT 14 U/L (4-34); AST 19 U/L (14-36); African American GFR (CKD) >90 (>60 ml/min/1.73 sqM); Albumin 4.5 g/dL (3.5-5.0); Alkaline Phosphatase 81 U/L (38-126); Anion Gap 10 mmol/L; Blood Urea Nitrogen 12 mg/dL (7-17); Calcium 9.6 mg/dL (8.4-10.2); Carbon Dioxide 24 mmol/L (22-30); Chloride 106 mmol/L (98-107); Glucose 97 mg/dL (74-99); Magnesium 2.2 mg/dL (1.6-2.3); Non-African American GFR(CKD) >90 (>60 ml/min/1.73 sqM); Potassium 4.1 mmol/L (3.5-5.1); Sodium 140 mmol/L (137-145); Total Bilirubin 0.4 mg/dL (0.2-1.3); Total Protein 7.4 g/dL (6.3-8.2)
[2023-09-21 00:42] VITALS: BP 110/74; PULSE 74; RESP 18
== END 2023-09-21 00:27 | disposition home or self-care (01) ==
LOC: EC 19:13
DX: R07.9 Chest pain, unspecified (principal); F12.90 Cannabis use, unspecified, uncomplicated; F17.290 Nicotine dependence, other tobacco product, uncomplicated; Z86.59 Personal history of other mental and behavioral disorders; Z20.822 Contact with and (suspected) exposure to COVID-19
CPT/HCPCS: 36415; 71046; 80053; 83735; 84484; 85025; 87636; 93005; 99285

== ENCOUNTER 2023-10-04 21:50 | Emergency (ER) | payer OTHER ==
[2023-10-04] MEDS ORDERED: SODIUM CHLORIDE 0.9% 1,000 ML IV STA (23:05)
[2023-10-04] MEDS ORDERED: KETOROLAC 15 MG/ML 1 ML VIAL IVP STA (23:06)
[2023-10-04] MEDS ORDERED: LORazepam 2 MG/ML INJ IV STA (23:06)
--- NOTE | 2023-10-04 23:47 | XR ---
EXAMINATION TYPE: XR chest 2V DATE OF EXAM: 10/04/2023 COMPARISON: Prior chest x-ray September 20, 2023 HISTORY: Chest pain TECHNIQUE: Frontal and lateral views of the chest are obtained. FINDINGS: There is no focal air space opacity, pleural effusion, or pneumothorax seen. The cardiac silhouette size is stable and within normal limits. The osseous structures are intact. Overlying EK G leads are seen on the current study. IMPRESSION: No acute process. No significant change from prior.
[2023-10-05 00:10] LABS: Basophils # (A) 0.1 k/uL (0-0.2); Basophils % (A) 1 %; Eosinophils # (A) 0.2 k/uL (0-0.7); Eosinophils % (A) 2 %; HCT 37.6 % (34.0-46.0); HGB 13.5 gm/dL (11.4-16.0); Lymphocytes # (A) 1.4 k/uL (1.0-4.8); Lymphocytes % (A) 14 %; MCH 30.7 pg (25.0-35.0); MCV 85.3 fL (80.0-100.0); Mean Platelet Volume 7.9; Monocytes # (A) 0.3 k/uL (0-1.0); Monocytes % (A) 3 %; Neutrophils # (A) 7.7 k/uL (1.3-7.7); Neutrophils % (A) 79 %; Platelet Count 294 k/uL (150-450); RBC 4.41 m/uL (3.80-5.40); RDW 13.6 % (11.5-15.5); WBC 9.7 k/uL (4.0-11.0)
[2023-10-05 00:19] LABS: ALT 13 U/L (4-34); AST 17 U/L (14-36); African American GFR (CKD) >90 (>60 ml/min/1.73 sqM); Albumin 4.5 g/dL (3.5-5.0); Alkaline Phosphatase 77 U/L (38-126); Anion Gap 12 mmol/L; Blood Urea Nitrogen 12 mg/dL (7-17); Calcium 9.4 mg/dL (8.4-10.2); Carbon Dioxide 24 mmol/L (22-30); Chloride 103 mmol/L (98-107); Glucose 91 mg/dL (74-99); Lipase 23 U/L (23-300); Magnesium 1.9 mg/dL (1.6-2.3); Non-African American GFR(CKD) >90 (>60 ml/min/1.73 sqM); Potassium 3.6 mmol/L (3.5-5.1); Sodium 139 mmol/L (137-145); Total Bilirubin 0.5 mg/dL (0.2-1.3); Total Protein 7.2 g/dL (6.3-8.2)
[2023-10-05 00:28] LABS: NT-Pro-B-Type Natriuretic Pept 48 pg/mL
[2023-10-05 00:30] LABS: INR 1.2 (<1.2); Partial Thromboplastin Time 29.8 sec (22.0-30.0); Prothrombin Time 12.7 sec (10.0-12.5)
--- NOTE | 2023-10-05 01:09 | ED ---
General Adult HPI - General Chief complaint: Chest Pain Stated complaint: Chest Pain, SOB Time Seen by Provider: 10/04/23 22:50 Source: patient, RN notes reviewed, old records reviewed Mode of arrival: ambulatory Limitations: no limitations - History of Present Illness Initial comments: Patient is a 17-year-old female presents emergency Department with multiple days of chest pain. Seems to be chest wall pain in nature. Could be related to anxiety. She describes tightness in the sternum that does not radiate. No other symptoms with it. No known palliative or provocative factors. No cardiac history. Presents for further evaluation. No recent long distance travel. No history of blood clots. No significant family history of cardiac disease .Current chest discomfort has been present for multiple days. She does think is likely related to anxiety. - Related Data Home Medications Medication Instructions Recorded Confirmed Vit No.179/Iron/Folic 1 tab PO DAILY 07/05/23 07/07/23 [ Tablet] Previous Rx's Medication Instructions Recorded Ibuprofen [Motrin] 600 mg PO Q6HR PRN #30 tab 07/09/23 Famotidine [Zantac-360 10 mg PO DAILY #30 tab 09/21/23 (Famotidine)] LORazepam [Ativan] 0.5 mg PO DAILY PRN 3 Days #3 tab 10/05/23 Allergies Allergy/AdvReac Type Severity Reaction Status Date / Time No Known Allergies Allergy Verified 10/04/23 22:00 Review of Systems ROS Statement: Those systems with pertinent positive or pertinent negative responses have been documented in the HPI. Review of Systems: CONST: Denies fever EYES: Denies blurry vision ENT: Denies nasal congestion C/V: Endorses substernal chest tightness, sharp pain RESP: Denies shortness of breath GI: Denies abdominal pain : Denies dysuria SKIN: Denies rash. MSK: Denies joint pain. NEURO: Denies headache ROS Other: All systems not noted in ROS Statement are negative. Past Medical History Past Medical History: No Reported History Additional Past Medical History / Comment(s): Previous term vaginal delivery baby boy History of Any Multi-Drug Resistant Organisms: None Reported Past Surgical History: No Surgical Hx Reported Past Anesthesia/Blood Transfusion Reactions: No Reported Reaction Past Psychological History: Depression Smoking Status: Vaper Past Alcohol Use History: None Reported Past Drug Use History: Marijuana - Past Family History Mother Family Medical History: No Reported History Father Family Medical History: No Reported History General Exam - General Exam Comments Initial Comments: General: Appears in no acute distress. HEAD: Normal with no signs of head trauma. EYES: PERRLA, EOMI, conjunctiva normal, no discharge. ENT: Hearing grossly intact, normal oropharynx. RESPIRATORY: Clear breath sounds bilaterally. No wheezes, rales, or rhonchi. C/V: Regular rate and rhythm. S1 and S2 auscultated, no edema, peripheral pulses 2+ and intact throughout ABD: Abd is soft, nontender, nondistended EXT: Normal range of motion, no obvious deformity SKIN: No rashes or lesions observed on exposed skin. NEURO: Alert and oriented x 4. Limitations: no limitations Course Vital Signs 10/04/23 10/04/23 10/05/23 21:58 22:43 00:00 Temperature 98 F Pulse Rate 80 52 L Pulse Rate [ 78 Gas Engine Operator Generators ] Respiratory 18 16 Rate Blood Pressure 117/75 113/72 O2 Sat by Pulse 98 97 Oximetry 10/05/23 10/05/23 01:00 01:33 Temperature 98.7 F Pulse Rate 56 L 60 Pulse Rate [ Gas Engine Operator Generators ] Respiratory 15 18 Rate Blood Pressure 107/66 113/72 O2 Sat by Pulse 97 98 Oximetry Medical Decision Making - Medical Decision Making Was pt. sent in by a medical professional or institution (, PA, CAMPAIGN WORKER, urgent care, hospital, or prison...) When possible be specific @ -No Did you speak to anyone other than the patient for history (EMS, parent, family, police, friend...)? What history was obtained from this source @ -No Did you review nursing and triage notes (agree or disagree)? Why? @ -I reviewed and agree with nursing and triage notes Were old charts reviewed (outside hosp., previous admission, EMS record, old EKG, old radiological studies, urgent care reports/EKG's, prison records)? Report findings @ -Old charts reviewed Differential Diagnosis (chest pain, altered mental status, abdominal pain women, abdominal pain men, vaginal bleeding, weakness, fever, dyspnea, syncope, headache, dizziness, GI bleed, back pain, seizure, CVA, palpatations, mental health, musculoskeletal)? @ -Differential Chest Pain: Stable Angina, Unstable Angina, STEMI, NSTEMI Aortic Dissection, Pneumothorax, Musculoskeletal, Esophageal Spasm GERD, Cholecystitis, Pancreatitis, Zoster, this is not meant to be an all-inclusive list. EKG interpreted by me (3pts min.). @ -As above X-rays interpreted by me (1pt min.). @ -Chest x-ray reveals no obvious acute cardiopulmonary process. CT interpreted by me (1pt min.). @ -None done U/S interpreted by me (1pt. min.). @ -None done What testing was considered but not performed or refused? (CT, X-rays, U/S, labs)? Why? @ -None What meds were considered but not given or refused? Why? @ -None Did you discuss the management of the patient with other professionals (professionals i.e. , PA, CAMPAIGN WORKER, lab, RT, psych nurse, social sciences department chair, stitch bonding machine tender, teacher, licensing officer, mattress spring encaser)? Give summary @ -No Was smoking cessation discussed for >3mins.? @ -No Was critical care preformed (if so, how long)? @ -No Were there social determinants of health that impacted care today? How? (Homelessness, low income, unemployed, alcoholism, drug addiction, transportation, low edu. Level, literacy, decrease access to med. care, shelter, rehab)? @ -No Was there de-escalation of care discussed even if they declined (Discuss DNR or withdrawal of care, Hospice)? DNR status @ -No What co-morbidities impacted this encounter? (DM, HTN, Smoking, COPD, CAD, [place], CVA, ARF, Chemo, Hep., AIDS, mental health diagnosis, sleep apnea, morbid obesity)? @ -None Was patient admitted / discharged? Hospital course, mention meds given and route, prescriptions, significant lab abnormalities, going to OR and other pertinent info. @ -Based on the patient's presentation and physical exam, presents with atypica l chest pain. I do suspect anxiety is playing a role however we will obtain further bony workup. Has been present for multiple days. She was in agreement this plan. Vital signs within acceptable limits. She will be sent likely treated with IV Toradol, Ativan, as well as a 1 L fluid bolus. EKG showed no signs of acute ischemia. Chest x-ray unremarkable. Laboratory studies are markable for an undetectable troponin, as well as an undetectable d- dimer. On reevaluation, symptoms have resolved. I discussed the workup with the patient. She'll be discharged this time. She was this plan. She'll be discharged home with 3 tablets of Ativan. I instructed the patient to follow up with their PCP in the next 1-3 days. I explained that the patient should return to the emergency department if they experience any worsening symptoms. Strict return precautions were discussed with the patient. The patient expressed understanding of these instructions. I answered all questions that the patient had. The patient was discharged home in good condition with their prescriptions and follow up information. Undiagnosed new problem with uncertain prognosis? @ -No Drug Therapy requiring intensive monitoring for toxicity (Heparin, Nitro, Insulin, Cardizem)? @ -No Were any procedures done? @ -No Diagnosis/symptom? @ -Atypical chest pain, anxiety Acute, or Chronic, or Acute on Chronic? @ -Acute Uncomplicated (without systemic symptoms) or Complicated (systemic symptoms)? @ -Complicated Side effects of treatment? @ -No Exacerbation, Progression, or Severe Exacerbation? @ -No Poses a threat to life or bodily function? How? (Chest pain, [place], [place], pneumonia, PE, COPD, DKA, ARF, appy, cholecystitis, CVA, Diverticulitis, Homicidal, Suicidal, threat to staff... and all critical care pts) @ -No - Lab Data Result diagrams: 10/04/23 23:53 10/04/23 23:53 Lab Results 10/04/23 10/04/23 10/04/23 Range/Units 23:53 23:53 23:53 WBC 9.7 (4.0-11.0) k/uL RBC 4.41 (3.80-5.40) m/uL Hgb 13.5 (11.4-16.0) gm/dL Hct 37.6 (34.0-46.0) % MCV 85.3 (80.0-100.0) fL MCH 30.7 (25.0-35.0) pg MCHC 36.0 (31.0-37.0) g/dL RDW 13.6 (11.5-15.5) % Plt Count 294 (150-450) k/uL MPV 7.9 Neutrophils % 79 % Lymphocytes % 14 % Monocytes % 3 % Eosinophils % 2 % Basophils % 1 % Neutrophils # 7.7 (1.3-7.7) k/uL Lymphocytes # 1.4 (1.0-4.8) k/uL Monocytes # 0.3 (0-1.0) k/uL Eosinophils # 0.2 (0-0.7) k/uL Basophils # 0.1 (0-0.2) k/uL PT 12.7 H (10.0-12.5) sec INR 1.2 H (<1.2) APTT 29.8 (22.0-30.0) sec D-Dimer <0.17 (<0.60) mg/L FEU Sodium 139 (137-145) mmol/L Potassium 3.6 (3.5-5.1) mmol/L Chloride 103 (98-107) mmol/L Carbon Dioxide 24 (22-30) mmol/L Anion Gap 12 mmol/L BUN 12 (7-17) mg/dL Creatinine 0.65 (0.52-1.04) mg/dL Est GFR (CKD-EPI)AfAm >90 (>60 ml/min/1.73 sqM) Est GFR (CKD-EPI)NonAf >90 (>60 ml/min/1.73 sqM) Glucose 91 (74-99) mg/dL Calcium 9.4 (8.4-10.2) mg/dL Magnesium 1.9 (1.6-2.3) mg/dL Total Bilirubin 0.5 (0.2-1.3) mg/dL AST 17 (14-36) U/L ALT 13 (4-34) U/L Alkaline Phosphatase 77 (38-126) U/L Troponin I (0.000-0.034) ng/mL NT-Pro-B Natriuret Pep 48 pg/mL Total Protein 7.2 (6.3-8.2) g/dL Albumin 4.5 (3.5-5.0) g/dL Lipase 23 (23-300) U/L 10/04/23 Range/Units 23:53 WBC (4.0-11.0) k/uL RBC (3.80-5.40) m/uL Hgb (11.4-16.0) gm/dL Hct (34.0-46.0) % MCV (80.0-100.0) fL MCH (25.0-35.0) pg MCHC (31.0-37.0) g/dL RDW (11.5-15.5) % Plt Count (150-450) k/uL MPV Neutrophils % % Lymphocytes % % Monocytes % % Eosinophils % % Basophils % % Neutrophils # (1.3-7.7) k/uL Lymphocytes # (1.0-4.8) k/uL Monocytes # (0-1.0) k/uL Eosinophils # (0-0.7) k/uL Basophils # (0-0.2) k/uL PT (10.0-12.5) sec INR (<1.2) APTT (22.0-30.0) sec D-Dimer (<0.60) mg/L FEU Sodium (137-145) mmol/L Potassium (3.5-5.1) mmol/L Chloride (98-107) mmol/L Carbon Dioxide (22-30) mmol/L Anion Gap mmol/L BUN (7-17) mg/dL Creatinine (0.52-1.04) mg/dL Est GFR (CKD-EPI)AfAm (>60 ml/min/1.73 sqM) Est GFR (CKD-EPI)NonAf (>60 ml/min/1.73 sqM) Glucose (74-99) mg/dL Calcium (8.4-10.2) mg/dL Magnesium (1.6-2.3) mg/dL Total Bilirubin (0.2-1.3) mg/dL AST (14-36) U/L ALT (4-34) U/L Alkaline Phosphatase (38-126) U/L Troponin I <0.012 (0.000-0.034) ng/mL NT-Pro-B Natriuret Pep pg/mL Total Protein (6.3-8.2) g/dL Albumin (3.5-5.0) g/dL Lipase (23-300) U/L - EKG Data -: EKG Interpreted by Me EKG Comments: 12-lead Electrocardiogram Interpretation Note EKG was reviewed and interpreted by myself. 12-lead ECG performed at 2204 is interpreted by me as revealing normal sinus rhythm at a rate of 76 beats per minute. [place] is normal. ME interval is 124 ms, QRS duration is 90 ms, QTc is 416 ms.. There were no ST or T wave abnormalities to suggest myocardial ischemia or injury. R wave progression across the precordium was satisfactory. By my interpretation this EKG is non-diagnostic for acute ischemia. Disposition Clinical Impression: Anxiety, Atypical chest pain Disposition: HOME SELF-CARE Condition: Good Instructions (If sedation given, give patient instructions): Anxiety (ED) Prescriptions: LORazepam [Ativan] 0.5 mg PO DAILY PRN 3 Days #3 tab PRN Reason: Anxiety Is patient prescribed a controlled substance at d/c from ED?: Yes When asked, does pt state using other controlled substances?: No If prescribed controlled substance>3 days was MAPS reviewed?: Prescribed <3 Days Referrals: Nonstaff,Physician [Primary Care Provider] - 1-2 days Time of Disposition: 00:58
[2023-10-05 01:16] VITALS: BP 113/72
[2023-10-05 01:40] VITALS: PULSE 60; RESP 18
[2023-10-05 01:41] VITALS: TEMP 98.7
== END 2023-10-05 01:34 | disposition home or self-care (01) ==
LOC: EC 21:50
DX: R07.89 Other chest pain (principal); F41.9 Anxiety disorder, unspecified; F12.90 Cannabis use, unspecified, uncomplicated; F17.200 Nicotine dependence, unspecified, uncomplicated; Z86.59 Personal history of other mental and behavioral disorders
CPT/HCPCS: 36415; 93005; 85379; 83880; 80053; 83690; 83735; 84484; 85025; 85610; 85730; 71046; 99285; 96374; 96375; 96361; J2060; J1885

== ENCOUNTER 2023-10-08 00:15 | Emergency (ER) | payer OTHER ==
[2023-10-08 00:51] VITALS: BP 120/73; PULSE 75; RESP 18; TEMP 98.6
[2023-10-08] MEDS ORDERED: IBUPROFEN 600 MG TAB PO STA (01:55)
--- NOTE | 2023-10-08 01:57 | ED ---
ENT HPI - General Chief complaint: ENT Stated complaint: Sore Throat Time Seen by Provider: 10/08/23 01:38 Source: patient Mode of arrival: ambulatory Limitations: no limitations - History of Present Illness Initial comments: 18-year-old female presenting with chief complaint of sore throat. Patient states that yesterday she began having a sore throat, she notes some lumps at the back of her tongue as well. She is having no difficulty breathing or swallowing. She is currently being treated for dental abscess by her dentist. She states that she was at urgent care yesterday and given a steroid for her sore throat, she was noted to have enlarged lymph nodes yesterday as well patient states that she was feeling a bit anxious and wanted to be reevaluated. No drooling, tripoding stance, stridor, brawny induration, voice changes, chest pain, difficulty breathing, fever. - Related Data Home Medications Medication Instructions Recorded Confirmed Vit No.179/Iron/Folic 1 tab PO DAILY 07/05/23 07/07/23 [ Tablet] Previous Rx's Medication Instructions Recorded Ibuprofen [Motrin] 600 mg PO Q6HR PRN #30 tab 07/09/23 Famotidine [Zantac-360 10 mg PO DAILY #30 tab 09/21/23 (Famotidine)] LORazepam [Ativan] 0.5 mg PO DAILY PRN 3 Days #3 tab 10/05/23 hydrOXYzine HCL [Atarax] 50 mg PO Q6H PRN #10 tablet 10/08/23 Allergies Allergy/AdvReac Type Severity Reaction Status Date / Time No Known Allergies Allergy Verified 10/08/23 00:24 Review of Systems ROS Statement: Those systems with pertinent positive or pertinent negative responses have been documented in the HPI. ROS Other: All systems not noted in ROS Statement are negative. Past Medical History Past Medical History: No Reported History Additional Past Medical History / Comment(s): Previous term vaginal delivery baby boy History of Any Multi-Drug Resistant Organisms: None Reported Past Surgical History: No Surgical Hx Reported Past Anesthesia/Blood Transfusion Reactions: No Reported Reaction Past Psychological History: Anxiety, Depression Smoking Status: Vaper Past Alcohol Use History: None Reported Past Drug Use History: Marijuana - Past Family History Mother Family Medical History: No Reported History Father Family Medical History: No Reported History General Exam Limitations: no limitations General appearance: alert, in no apparent distress Head exam: Present: atraumatic, normocephalic Eye exam: Present: normal appearance ENT exam: Present: normal oropharynx, mucous membranes moist Neck exam: Present: normal inspection, lymphadenopathy Respiratory exam: Present: normal lung sounds bilaterally. Absent: respiratory distress, wheezes, rales, rhonchi, stridor Cardiovascular Exam: Present: regular rate, normal rhythm, normal heart sounds. Absent: systolic murmur, diastolic murmur, rubs, gallop, clicks Neurological exam: Present: alert, oriented X3 Psychiatric exam: Present: normal affect, normal mood Skin exam: Present: warm, dry Course Vital Signs 10/08/23 00:21 Temperature 98.6 F Pulse Rate 75 Respiratory 18 Rate Blood Pressure 120/73 O2 Sat by Pulse 100 Oximetry Medical Decision Making - Medical Decision Making Was pt. sent in by a medical professional or institution (Dr. PA, METAL [employer]ATING, urgent care, hospital, or alf...) When possible be specific @ -No Did you speak to anyone other than the patient for history (EMS, parent, family, police, friend...)? What history was obtained from this source @ -No Did you review nursing and triage notes (agree or disagree)? Why? @ -I reviewed and agree with nursing and triage notes Were old charts reviewed (outside hosp., previous admission, EMS record, old EKG, old radiological studies, urgent care reports/EKG's, alf records)? Report findings @ -No old charts were reviewed Differential Diagnosis (chest pain, altered mental status, abdominal pain women, abdominal pain men, vaginal bleeding, weakness, fever, dyspnea, syncope, headache, dizziness, GI bleed, back pain, seizure, CVA, palpatations, mental health, musculoskeletal)? @ -Differential includes strep throat, viral pharyngitis, thrush, epiglottitis, this is not an all inclusive list EKG interpreted by me (3pts min.). @ -As above X-rays interpreted by me (1pt min.). @ -None done CT interpreted by me (1pt min.). @ -None done U/S interpreted by me (1pt. min.). @ -None done What testing was considered but not performed or refused? (CT, X-rays, U/S, labs)? Why? @ -None What meds were considered but not given or refused? Why? @ -None Did you discuss the management of the patient with other professionals (professionals i.e. , PA, [employer], lab, RT, psych nurse, social work program coordinator, j2ee architect, teacher, debt recovery officer, rehabilitation case coordinator)? Give summary @ -No Was smoking cessation discussed for >3mins.? @ -No Was critical care preformed (if so, how long)? @ -No Were there social determinants of health that impacted care today? How? (Homelessness, low income, unemployed, alcoholism, drug addiction, transportation, low edu. Level, literacy, decrease access to med. care, care home, rehab)? @ -No Was there de-escalation of care discussed even if they declined (Discuss DNR or withdrawal of care, Hospice)? DNR status @ -No What co-morbidities impacted this encounter? (DM, HTN, Smoking, COPD, CAD, Cancer, CVA, ARF, Chemo, Hep., AIDS, mental health diagnosis, sleep apnea, morbid obesity)? @ -None Was patient admitted / discharged? Hospital course, mention meds given and route, prescriptions, significant lab abnormalities, going to OR and other pertinent info. @ -18-year-old female presenting with chief complaint of sore throat. It started yesterday, she is currently taking steroids prescribed by urgent care. On exam normal posterior pharynx and oropharynx. There is lymphadenopathy noted. No stridor or voice changes patient is having no difficulty breathing. She is negative for group A strep. She is educated on today's findings on supportive management of viral pharyngitis. Follow-up with PCP. Report back to ER with any new or worsening symptoms. Discussed return parameters and answered all questions. Patient conveyed verbal understanding and agreed to the plan. I discussed this case in detail with my attending Dr. Mccormack Undiagnosed new problem with uncertain prognosis? @ -No Drug Therapy requiring intensive monitoring for toxicity (Heparin, Nitro, Insulin, Cardizem)? @ -No Were any procedures done? @ -No Diagnosis/symptom? @ -Viral pharyngitis Acute, or Chronic, or Acute on Chronic? @ -Acute Uncomplicated (without systemic symptoms) or Complicated (systemic symptoms)? @ -Uncomplicated Side effects of treatment? @ -No Exacerbation, Progression, or Severe Exacerbation? @ -No Poses a threat to life or bodily function? How? (Chest pain, [place], [place], pneumonia, PE, COPD, DKA, ARF, appy, cholecystitis, CVA, Diverticulitis, Homicidal, Suicidal, threat to staff... and all critical care pts) @ -No - Lab Data Lab Results 10/08/23 Range/Units 00:25 Group A Strep (PCR) NOT DETECTED (Not Detectd) Disposition Clinical Impression: Acute viral pharyngitis, Anxiety Disposition: HOME SELF-CARE Condition: Good Instructions (If sedation given, give patient instructions): Pharyngitis (ED), Anxiety (ED) Additional Instructions: Follow up with dentist and PCP at your scheduled appointments. Report back to ER with any new or worsening symptoms. Take Motrin and Tylenol as needed for pain control. Prescriptions: hydrOXYzine HCL [Atarax] 50 mg PO Q6H PRN #10 tablet PRN Reason: Anxiety Is patient prescribed a controlled substance at d/c from ED?: No Referrals: Clare Bourgeois NPC [REFERRING] - 1-2 days Time of Disposition: 01:55
== END 2023-10-08 02:11 | disposition home or self-care (01) ==
LOC: EC 00:15
DX: J02.8 Acute pharyngitis due to other specified organisms (principal); B97.89 Other viral agents as the cause of diseases classified elsewhere; F41.9 Anxiety disorder, unspecified; R59.1 Generalized enlarged lymph nodes; F17.290 Nicotine dependence, other tobacco product, uncomplicated; F12.90 Cannabis use, unspecified, uncomplicated
CPT/HCPCS: 87651; 99283

== ENCOUNTER 2023-10-09 16:04 | Emergency (ER) | payer OTHER ==
--- NOTE | 2023-10-09 16:42 | ED ---
General Adult HPI - General Source: patient Mode of arrival: ambulatory Limitations: no limitations <Bella Acevedo - Last Filed: 10/09/23 16:43> <Charisse Linda P - Last Filed: 10/09/23 19:14> - General Stated complaint: chest pain MYRTLE Time Seen by Provider: 10/09/23 16:41 - History of Present Illness Initial comments: 18-year-old female presenting with chief complaint of throat pain. Patient states that for the last month or 2 she has had pain that shoots from her throat down into her chest when she eats or drinks. I performed a quick note portion of this visit electronically signed Bella Acevedo PA-C (Bella Acevedo) - Related Data Home Medications Medication Instructions Recorded Confirmed Vit No.179/Iron/Folic 1 tab PO DAILY 07/05/23 07/07/23 [ Tablet] Previous Rx's Medication Instructions Recorded Ibuprofen [Motrin] 600 mg PO Q6HR PRN #30 tab 07/09/23 Famotidine [Zantac-360 10 mg PO DAILY #30 tab 09/21/23 (Famotidine)] LORazepam [Ativan] 0.5 mg PO DAILY PRN 3 Days #3 tab 10/05/23 hydrOXYzine HCL [Atarax] 50 mg PO Q6H PRN #10 tablet 10/08/23 Sucralfate [Carafate] 1 gm PO ACHS #60 tab 10/09/23 Allergies Allergy/AdvReac Type Severity Reaction Status Date / Time No Known Allergies Allergy Verified 10/09/23 16:42 Review of Systems ROS Other: All systems not noted in ROS Statement are negative. <Bella Acevedo - Last Filed: 10/09/23 16:43> ROS Other: All systems not noted in ROS Statement are negative. <Charisse Linda P - Last Filed: 10/09/23 19:14> ROS Statement: Those systems with pertinent positive or pertinent negative responses have been documented in the HPI. Past Medical History Past Medical History: No Reported History Additional Past Medical History / Comment(s): Previous term vaginal delivery baby boy History of Any Multi-Drug Resistant Organisms: None Reported Past Surgical History: No Surgical Hx Reported Past Anesthesia/Blood Transfusion Reactions: No Reported Reaction Past Psychological History: Anxiety, Depression Smoking Status: Vaper Past Alcohol Use History: None Reported Past Drug Use History: Marijuana - Past Family History Mother Family Medical History: No Reported History Father Family Medical History: No Reported History <Bella Acevedo - Last Filed: 10/09/23 16:43> General Exam <Bella Acevedo - Last Filed: 10/09/23 16:43> - General Exam Comments Initial Comments: Visual Physical Exam Vital signs reviewed General: Well-appearing, nontoxic, no acute distress. Head: Normocephalic, atraumatic Eyes: PERRLA, EOMI ENT: Airway patent Chest: Nonlabored breathing Skin: No visual rash, normal skin tone Neuro: Alert and oriented 3 Musculoskeletal: No gross abnormalities (Bella Acevedo) Course Vital Signs 10/09/23 16:38 Temperature 98.4 F Pulse Rate 90 Respiratory 20 Rate Blood Pressure 128/77 O2 Sat by Pulse 96 Oximetry Disposition <Bella Acevedo - Last Filed: 10/09/23 16:43> Is patient prescribed a controlled substance at d/c from ED?: No <Charisse Linda - Last Filed: 10/09/23 19:14> Clinical Impression: Epigastric pain Disposition: HOME SELF-CARE Condition: Stable Prescriptions: Sucralfate [Carafate] 1 gm PO ACHS #60 tab Referrals: Reji Mohan MD [Primary Care Provider] - 1-2 days
[2023-10-09 16:57] VITALS: BP 128/77; PULSE 90; RESP 20; TEMP 98.4
--- NOTE | 2023-10-09 17:10 | XR ---
EXAMINATION TYPE: XR chest 1V DATE OF EXAM: 10/09/2023 COMPARISON: 10/04/2023 HISTORY: Chest pain TECHNIQUE: Single frontal view of the chest is obtained. FINDINGS: There is no focal air space opacity, pleural effusion, or pneumothorax seen. The cardiac silhouette size is within normal limits. The osseous structures are intact. IMPRESSION: No acute process.
--- NOTE | 2023-10-09 17:11 | XR ---
KUB. HISTORY: Abdominal pain. COMPARISON: None. TECHNIQUE: 2 upright views of the abdomen were obtained. FINDINGS: The lung bases are clear. There is no free intraperitoneal air beneath the diaphragm. The bowel gas pattern is nonspecific and there is no evidence of obstruction. No suspicious abdominal or pelvic calcifications are seen. The osseous structures are intact. IMPRESSION: Nonspecific abdomen without evidence of free air or obstruction.
== END 2023-10-09 19:21 | disposition home or self-care (01) ==
LOC: EC 16:04
DX: R10.13 Epigastric pain (principal); F17.290 Nicotine dependence, other tobacco product, uncomplicated; F12.90 Cannabis use, unspecified, uncomplicated; Z86.59 Personal history of other mental and behavioral disorders
CPT/HCPCS: 71045; 74018; 99284

== ENCOUNTER 2023-11-15 22:09 | Emergency (ER) | payer OTHER ==
[2023-11-15 22:36] VITALS: TEMP 98.7
--- NOTE | 2023-11-15 22:54 | ED ---
General Adult HPI - General Chief complaint: Upper Respiratory Infection Stated complaint: Headache Time Seen by Provider: 11/15/23 22:26 Source: patient, RN notes reviewed, old records reviewed Mode of arrival: ambulatory Limitations: no limitations - History of Present Illness Initial comments: 18-year-old female presenting with headache, nasal congestion, myalgia. Patient denies chest pain or abdominal pain. Denies dysuria or hematuria. Denies current . States she has had approximately 3 weeks of nasal congestion and had been treated with antibiotics by her primary care provider. She developed a headache today and states she does get daily headaches. She states she is under a great deal of stress. She states she took Ativan at home which made her sleepy but did not improve her symptoms. - Related Data Home Medications Medication Instructions Recorded Confirmed Amoxicillin 500 mg PO Q8H 10/09/23 10/09/23 methylPREDNISolone Dose Pack See Taper PO DIRECTED 10/09/23 10/09/23 [Medrol Dose Pack] Previous Rx's Medication Instructions Recorded hydrOXYzine HCL [Atarax] 50 mg PO Q6H PRN #10 tablet 10/08/23 Sucralfate [Carafate] 1 gm PO ACHS #60 tab 10/09/23 Allergies Allergy/AdvReac Type Severity Reaction Status Date / Time No Known Allergies Allergy Verified 11/15/23 22:21 Review of Systems ROS Statement: Those systems with pertinent positive or pertinent negative responses have been documented in the HPI. ROS Other: All systems not noted in ROS Statement are negative. Past Medical History Past Medical History: No Reported History Additional Past Medical History / Comment(s): Previous term vaginal delivery baby boy History of Any Multi-Drug Resistant Organisms: None Reported Past Surgical History: No Surgical Hx Reported Past Anesthesia/Blood Transfusion Reactions: No Reported Reaction Past Psychological History: Anxiety, Depression Smoking Status: Vaper Past Alcohol Use History: None Reported Past Drug Use History: Marijuana - Past Family History Mother Family Medical History: No Reported History Father Family Medical History: No Reported History General Exam Limitations: no limitations General appearance: alert, in no apparent distress Head exam: Present: atraumatic, normocephalic Eye exam: Present: normal appearance, PERRL ENT exam: Present: normal exam Neck exam: Present: normal inspection. Absent: tenderness, meningismus Respiratory exam: Present: normal lung sounds bilaterally. Absent: respiratory distress, wheezes Cardiovascular Exam: Present: regular rate, normal rhythm GI/Abdominal exam: Present: soft. Absent: distended, tenderness, guarding Extremities exam: Present: normal inspection, normal capillary refill. Absent: pedal edema, calf tenderness Neurological exam: Present: alert, oriented X3, CN II-XII intact. Absent: motor sensory deficit Psychiatric exam: Present: normal affect, normal mood Skin exam: Present: warm, dry, intact. Absent: cyanosis, diaphoretic Course Vital Signs 11/15/23 22:20 Temperature 98.7 F Pulse Rate 82 Respiratory 18 Rate Blood Pressure 123/80 O2 Sat by Pulse 99 Oximetry Medical Decision Making - Medical Decision Making Was pt. sent in by a medical professional or institution (, PA, PLACEMENT ASSISTANT, urgent care, hospital, or skilled nursing...) When possible be specific @ -No Did you speak to anyone other than the patient for history (EMS, parent, family, police, friend...)? What history was obtained from this source @ -No Did you review nursing and triage notes (agree or disagree)? Why? @ -I reviewed and agree with nursing and triage notes Were old charts reviewed (outside hosp., previous admission, EMS record, old EKG, old radiological studies, urgent care reports/EKG's, skilled nursing records)? Report findings @ -No old charts were reviewed Differential Diagnosis (chest pain, altered mental status, abdominal pain women, abdominal pain men, vaginal bleeding, weakness, fever, dyspnea, syncope, headache, dizziness, GI bleed, back pain, seizure, CVA, palpatations, mental health, musculoskeletal)? @Differential Headache: Migraine, tension, cluster, carbon monoxide, central venous thrombosis, pension karma temporal arteritis, acute closure glaucoma, intercranial hemorrhage, mastoiditis, sinusitis, head injury, this is not meant to be an all-inclusive list. EKG interpreted by me (3pts min.). @ -As above X-rays interpreted by me (1pt min.). @ -None done CT interpreted by me (1pt min.). @ -CT brain negative for intracranial hemorrhage or mass effect. U/S interpreted by me (1pt. min.). @ -None done What testing was considered but not performed or refused? (CT, X-rays, U/S, labs)? Why? @ -None What meds were considered but not given or refused? Why? @ -None Did you discuss the management of the patient with other professionals (professionals i.e. , PA, PLACEMENT ASSISTANT, lab, RT, psych nurse, oncology social worker, geothermal sheet metal worker, teacher, water resources technical officer, mental health case manager)? Give summary @ -No Was smoking cessation discussed for >3mins.? @ -No Was critical care preformed (if so, how long)? @ -No Were there social determinants of health that impacted care today? How? (Homelessness, low income, unemployed, alcoholism, drug addiction, transportation, low edu. Level, literacy, decrease access to med. care, penitentiary, rehab)? @ -No Was there de-escalation of care discussed even if they declined (Discuss DNR or withdrawal of care, Hospice)? DNR status @ -No What co-morbidities impacted this encounter? (DM, HTN, Smoking, COPD, CAD, Cancer, CVA, ARF, Chemo, Hep., AIDS, mental health diagnosis, sleep apnea, morbid obesity)? @ -Chronic daily headache Was patient admitted / discharged? Hospital course, mention meds given and route, prescriptions, significant lab abnormalities, going to OR and other pertinent info. @ -18-year-old female presenting with headache, congestion, myalgia. Patient states she does have chronic daily headache. She also admits to anxiety. She states she is stressed. Patient is well-appearing with stable vitals. She has a nonfocal neurologic exam. Given the chronic daily headache, I did perform CT imaging to rule out acute process or intracranial mass. This was negative. Negative viral panel, urinalysis is contaminated without significant signs of infection. Urine negative. Patient stable for discharge with close outpatient follow-up and return parameters. Undiagnosed new problem with uncertain prognosis? @ -No Drug Therapy requiring intensive monitoring for toxicity (Heparin, Nitro, Insulin, Cardizem)? @ -No Were any procedures done? @ -No Diagnosis/symptom? @ -Headache Acute, or Chronic, or Acute on Chronic? @ -Acute on chronic Uncomplicated (without systemic symptoms) or Complicated (systemic symptoms)? @ -Default Side effects of treatment? @ -No Exacerbation, Progression, or Severe Exacerbation? @ -No Poses a threat to life or bodily function? How? (Chest pain, [place], [place], pneumonia, PE, COPD, DKA, ARF, appy, cholecystitis, CVA, Diverticulitis, Homicidal, Suicidal, threat to staff... and all critical care pts) @ -Low risk at this time - Lab Data Lab Results 11/15/23 11/15/23 11/15/23 Range/Units 22:47 23:07 23:07 Urine Color Yellow Urine Appearance Clear (Clear) Urine pH 6.0 (5.0-8.0) Ur Specific [place] 1.028 (1.001-1.035) Urine Protein Trace H (Negative) Urine Glucose (UA) Negative (Negative) Urine Ketones Negative (Negative) Urine Blood Moderate H (Negative) Urine Nitrite Negative (Negative) Urine Bilirubin Negative (Negative) Urine Urobilinogen <2.0 (<2.0) mg/dL Ur Leukocyte Esterase Small H (Negative) Urine RBC 2 (0-5) /hpf Urine WBC 7 H (0-5) /hpf Ur Squamous Epith Cells 6 H (0-4) /hpf Urine Bacteria Rare H (None) /hpf Urine Mucus Occasional H (None) /hpf Urine HCG, Qual Not Detected (Not Detectd) Influenza Type A (PCR) Not Detected (Not Detectd) Influenza Type B (PCR) Not Detected (Not Detectd) RSV (PCR) Not Detected (Not Detectd) SARS-CoV-2 (PCR) Not Detected (Not Detectd) Disposition Clinical Impression: Headache Disposition: HOME SELF-CARE Condition: Fair Instructions (If sedation given, give patient instructions): Acute Headache (ED) Is patient prescribed a controlled substance at d/c from ED?: No Referrals: Reji Mohan MD [Primary Care Provider] - 1-2 days Time of Disposition: 23:58
[2023-11-15 23:26] LABS: Appearance,Urine Clear (Clear); Bacteria,Urine Rare /hpf; Bilirubin,Urine Negative (Negative); Blood,Urine Moderate (Negative); Color,Urine Yellow; Glucose,Urine (UA) Negative (Negative); Ketones,Urine Negative (Negative); Leukocyte Esterase,Urine Small (Negative); Mucus,Urine Occasional /hpf; Nitrite,Urine Negative (Negative); Protein,Urine Trace (Negative); RBC,Urine 2 /hpf (0-5); Specific Gravity,Urine 1.028 (1.001-1.035); Squamous Epithelial Cell,Urine 6 /hpf (0-4); Urobilinogen,Urine <2.0 mg/dL (<2.0); WBC,Urine 7 /hpf (0-5)
--- NOTE | 2023-11-15 23:51 | CT ---
EXAMINATION TYPE: CT brain wo con DATE OF EXAM: 11/15/2023 COMPARISON: None. HISTORY: Cough, congestion, headache, bodyaches CT DLP: 1168 mGycm. Automated Exposure Control for Dose Reduction was Utilized. TECHNIQUE: CT scan of the head is performed without contrast. FINDINGS: There is no acute intracranial hemorrhage, mass effect, or midline shift identified. The ventricles and sulci are within normal limits in size. Marte-white matter differentiation is maintain ed. The calvarium is intact. The globes are intact and the visualized sinuses are clear. IMPRESSION: No acute intracranial hemorrhage or midline shift is seen.
[2023-11-16 00:58] VITALS: BP 109/72; PULSE 80; RESP 20
== END 2023-11-16 00:08 | disposition home or self-care (01) ==
LOC: EC 22:09
DX: R51.9 Headache, unspecified (principal); F12.90 Cannabis use, unspecified, uncomplicated; F17.290 Nicotine dependence, other tobacco product, uncomplicated; Z86.59 Personal history of other mental and behavioral disorders; Z20.822 Contact with and (suspected) exposure to COVID-19
CPT/HCPCS: 70450; 81001; 81025; 87636; 99284

== ENCOUNTER 2024-10-07 07:37 | Emergency (ER) | payer OTHER ==
[2024-10-07 07:42] VITALS: RESP 18
--- NOTE | 2024-10-07 07:46 | ED ---
Abdominal Pain HPI - General Chief Complaint: Abdominal Pain Stated Complaint: Abd Pain Time Seen by Provider: 10/07/24 07:45 Source: patient, RN notes reviewed Mode of arrival: ambulatory Limitations: no limitations - History of Present Illness Initial Comments: This is a 19-year-old female no significant medical history who presents to the emergency department for chief complaint of flank pain, nausea, and concern for untreated urinary tract infection. Patient states that she was evaluated at urgent care on 10/02/24 and was diagnosed with a urinary tract infection and started on Macrobid. she followed up with her primary care provider 2 days ago where she was started on Bactrim, however, patient has had persistent symptoms of flank pain, nausea, suprapubic tenderness over the past few days. States that yesterday evening she began to experience right upper quadrant abdominal pain with radiation into the back in addition to nausea with no reported emesis. She denies fevers, chills, vaginal bleeding, vaginal discharge. She was tested for STIs urgent care that reported negative. Urine culture was completed by patient's PCP however patient is unaware of results - Related Data Home Medications Medication Instructions Recorded Confirmed Amoxicillin 500 mg PO Q8H 10/09/23 10/09/23 methylPREDNISolone Dose Pack See Taper PO DIRECTED 10/09/23 10/09/23 [Medrol Dose Pack] Previous Rx's Medication Instructions Recorded hydrOXYzine HCL [Atarax] 50 mg PO Q6H PRN #10 tablet 10/08/23 Sucralfate [Carafate] 1 gm PO ACHS #60 tab 10/09/23 Allergies Allergy/AdvReac Type Severity Reaction Status Date / Time No Known Allergies Allergy Verified 10/07/24 07:42 Review of Systems ROS Statement: Those systems with pertinent positive or pertinent negative responses have been documented in the HPI. ROS Other: All systems not noted in ROS Statement are negative. Past Medical History Past Medical History: No Reported History Additional Past Medical History / Comment(s): Previous term vaginal delivery baby boy History of Any Multi-Drug Resistant Organisms: None Reported Past Surgical History: No Surgical Hx Reported Past Anesthesia/Blood Transfusion Reactions: No Reported Reaction Past Psychological History: Anxiety, Depression Smoking Status: Vaper Past Alcohol Use History: None Reported Past Drug Use History: Marijuana - Past Family History Mother Family Medical History: No Reported History Father Family Medical History: No Reported History General Exam Limitations: no limitations Eye exam: Present: normal appearance, PERRL, EOMI. Absent: scleral icterus, conjunctival injection, periorbital swelling Neck exam: Present: normal inspection. Absent: tenderness, meningismus, lymphadenopathy Respiratory exam: Present: normal lung sounds bilaterally. Absent: respiratory distress, wheezes, rales, rhonchi, stridor Cardiovascular Exam: Present: regular rate, normal rhythm, normal heart sounds. Absent: systolic murmur, diastolic murmur, rubs, gallop, clicks GI/Abdominal exam: Present: soft, tenderness (RUQ, suprapubic), normal bowel sounds. Absent: distended, guarding, rebound, rigid Extremities exam: Present: normal inspection, full ROM, normal capillary refill. Absent: tenderness, pedal edema, joint swelling, calf tenderness Back exam: Present: CVA tenderness (R), CVA tenderness (L) Skin exam: Present: warm, dry, intact, normal color. Absent: rash Course Vital Signs 10/07/24 10/07/24 07:39 09:37 Temperature 98.0 F 98.4 F Pulse Rate 84 96 Respiratory 18 18 Rate Blood Pressure 115/73 108/68 O2 Sat by Pulse 99 100 Oximetry Medical Decision Making - Medical Decision Making Was pt. sent in by a medical professional or institution (Dr. PA, DOCTOR OF OPTOMETRY, urgent care, hospital, or senior living...) When possible be specific @ -No Did you speak to anyone other than the patient for history (EMS, parent, family, police, friend...)? What history was obtained from this source @ -No Did you review nursing and triage notes (agree or disagree)? Why? @ -I reviewed and agree with nursing and triage notes Were old charts reviewed (outside hosp., previous admission, EMS record, old EKG, old radiological studies, urgent care reports/EKG's, senior living records)? Report findings @ -No old charts were reviewed Differential Diagnosis (chest pain, altered mental status, abdominal pain women, abdominal pain men, vaginal bleeding, weakness, fever, dyspnea, syncope, headache, dizziness, GI bleed, back pain, seizure, CVA, palpatations, mental health, musculoskeletal)? @ -Differential Abdominal Pain Women: Appendicitis, Cholecystitis, diverticulosis, ischemic bowel, pancreatitis, hepatitis, UTI, gastroenteritis, AAA, incarcerated hernia, bowel obstruction, constipation, inflammatory bowel, hepatitis, peptic ulcer disease, splenic infarction, perforated viscus, vulvitis, ovarian torsion, PID, kidney stone, placenta abruption, this is not meant to be an all-inclusive list EKG interpreted by me (3pts min.). @ -none X-rays interpreted by me (1pt min.). @ -None done CT interpreted by me (1pt min.). @ -None done U/S interpreted by me (1pt. min.). @ -US of the right upper quadrant no evidence for acute process What testing was considered but not performed or refused? (CT, X-rays, U/S, labs)? Why? @ -None What meds were considered but not given or refused? Why? @ -None Did you discuss the management of the patient with other professionals (professionals i.e. , PA, DOCTOR OF OPTOMETRY, lab, RT, psych nurse, perinatal social worker, gang vibrator operator, teacher, dog license officer supervisor, protective services case worker)? Give summary @ -No Was smoking cessation discussed for >3mins.? @ -No Was critical care preformed (if so, how long)? @ -No Were there social determinants of health that impacted care today? How? (Homelessness, low income, unemployed, alcoholism, drug addiction, transpo rtation, low edu. Level, literacy, decrease access to med. care, intermediate, rehab)? @ -No Was there de-escalation of care discussed even if they declined (Discuss DNR or withdrawal of care, Hospice)? DNR status @ -No What co-morbidities impacted this encounter? (DM, HTN, Smoking, COPD, CAD, Cancer, CVA, ARF, Chemo, Hep., AIDS, mental health diagnosis, sleep apnea, morbid obesity)? @ -None Was patient admitted / discharged? Hospital course, mention meds given and route, prescriptions, significant lab abnormalities, going to OR and other pertinent info. @ -discharged. 19-year-old female presenting with right upper quad abdominal pain and right flank pain. physical evaluation patient had a right upper quad abdominal pain to palpation. Vitals are stable. She will be evaluated via laboratory testing including urinalysis and ultrasound of the quadrant to rule out acute cholecystitis. She is also provided with fluids, antiemetics, Tylenol. Laboratory testing unremarkable. Urinalysis no signs of infection, no blood. hCG is negative. Ultrasound was unremarkable. Patient's urine has been sent for culture recommend that patient complete full course antibiotics prescribed by her PCP earlier in the week for urinary tract infection and advised to follow-up closely with PCP. Case discussed with Dr. Whitaker Undiagnosed new problem with uncertain prognosis? @ -No Drug Therapy requiring intensive monitoring for toxicity (Heparin, Nitro, Insulin, Cardizem)? @ -No Were any procedures done? @ -No Diagnosis/symptom? @ -unspecified abdominal pain/flank pain Acute, or Chronic, or Acute on Chronic? @ -acute Uncomplicated (without systemic symptoms) or Complicated (systemic symptoms)? @ -Uncomplicated Side effects of treatment? @ -No Exacerbation, Progression, or Severe Exacerbation? @ -No Poses a threat to life or bodily function? How? (Chest pain, USA, OR, pneumonia, PE, COPD, DKA, ARF, appy, cholecystitis, CVA, Diverticulitis, Homicidal, Suicidal, threat to staff... and all critical care pts) @ -No - Lab Data Result diagrams: 10/07/24 08:16 10/07/24 08:16 Lab Results 10/07/24 10/07/24 10/07/24 Range/Units 08:16 08:16 08:16 WBC 5.0 (3.8-10.6) k/uL RBC 4.73 (3.80-5.40) m/uL Hgb 14.2 (11.4-16.0) gm/dL Hct 41.0 (34.0-46.0) % MCV 86.8 (80.0-100.0) fL MCH 30.1 (25.0-35.0) pg MCHC 34.6 (31.0-37.0) g/dL RDW 13.3 (11.5-15.5) % Plt Count 292 (150-450) k/uL MPV 7.2 Neutrophils % 54 % Lymphocytes % 35 % Monocytes % 6 % Eosinophils % 3 % Basophils % 1 % Neutrophils # 2.7 (1.3-7.7) k/uL Lymphocytes # 1.7 (1.0-4.8) k/uL Monocytes # 0.3 (0-1.0) k/uL Eosinophils # 0.2 (0-0.7) k/uL Basophils # 0.0 (0-0.2) k/uL Sodium 137 (137-145) mmol/L Potassium 4.6 (3.5-5.1) mmol/L Chloride 103 (98-107) mmol/L Carbon Dioxide 24 (22-30) mmol/L Anion Gap 10 mmol/L BUN 17 (7-17) mg/dL Creatinine 0.80 (0.52-1.04) mg/dL Est GFR (CKD-EPI)AfAm >90 (>60 ml/min/1.73 sqM) Est GFR (CKD-EPI)NonAf >90 (>60 ml/min/1.73 sqM) Glucose 86 (74-99) mg/dL Plasma Lactic Acid Fabio 1.1 (0.7-2.0) mmol/L Calcium 9.2 (8.4-10.2) mg/dL Total Bilirubin 0.5 (0.2-1.3) mg/dL AST 29 (14-36) U/L ALT 21 (4-34) U/L Alkaline Phosphatase 70 (38-126) U/L Total Protein 7.3 (6.3-8.2) g/dL Albumin 4.5 (3.5-5.0) g/dL Amylase 84 (30-110) U/L Lipase 45 (23-300) U/L Urine Color Urine Appearance (Clear) Urine pH (5.0-8.0) Ur Specific Waller (1.001-1.035) Urine Protein (Negative) Urine Glucose (UA) (Negative) Urine Ketones (Negative) Urine Blood (Negative) Urine Nitrite (Negative) Urine Bilirubin (Negative) Urine Urobilinogen (<2.0) mg/dL Ur Leukocyte Esterase (Negative) Urine RBC (0-5) /hpf Urine WBC (0-5) /hpf Ur Squamous Epith Cells (0-4) /hpf Urine Mucus (None) /hpf Urine HCG, Qual (Not Detectd) 10/07/24 10/07/24 Range/Units 08:53 08:53 WBC (3.8-10.6) k/uL RBC (3.80-5.40) m/uL Hgb (11.4-16.0) gm/dL Hct (34.0-46.0) % MCV (80.0-100.0) fL MCH (25.0-35.0) pg MCHC (31.0-37.0) g/dL RDW (11.5-15.5) % Plt Count (150-450) k/uL MPV Neutrophils % % Lymphocytes % % Monocytes % % Eosinophils % % Basophils % % Neutrophils # (1.3-7.7) k/uL Lymphocytes # (1.0-4.8) k/uL Monocytes # (0-1.0) k/uL Eosinophils # (0-0.7) k/uL Basophils # (0-0.2) k/uL Sodium (137-145) mmol/L Potassium (3.5-5.1) mmol/L Chloride (98-107) mmol/L Carbon Dioxide (22-30) mmol/L Anion Gap mmol/L BUN (7-17) mg/dL Creatinine (0.52-1.04) mg/dL Est GFR (CKD-EPI)AfAm (>60 ml/min/1.73 sqM) Est GFR (CKD-EPI)NonAf (>60 ml/min/1.73 sqM) Glucose (74-99) mg/dL Plasma Lactic Acid Fabio (0.7-2.0) mmol/L Calcium (8.4-10.2) mg/dL Total Bilirubin (0.2-1.3) mg/dL AST (14-36) U/L ALT (4-34) U/L Alkaline Phosphatase (38-126) U/L Total Protein (6.3-8.2) g/dL Albumin (3.5-5.0) g/dL Amylase (30-110) U/L Lipase (23-300) U/L Urine Color Light Yellow Urine Appearance Cloudy H (Clear) Urine pH 6.0 (5.0-8.0) Ur Specific Waller 1.029 (1.001-1.035) Urine Protein Trace H (Negative) Urine Glucose (UA) Negative (Negative) Urine Ketones Negative (Negative) Urine Blood Negative (Negative) Urine Nitrite Negative (Negative) Urine Bilirubin Negative (Negative) Urine Urobilinogen <2.0 (<2.0) mg/dL Ur Leukocyte Esterase Negative (Negative) Urine RBC 1 (0-5) /hpf Urine WBC 2 (0-5) /hpf Ur Squamous Epith Cells 6 H (0-4) /hpf Urine Mucus Rare H (None) /hpf Urine HCG, Qual Not Detected (Not Detectd) Disposition Clinical Impression: Abdominal pain, Flank pain Disposition: HOME SELF-CARE Condition: Good Instructions (If sedation given, give patient instructions): Flank Pain (ED) Additional Instructions: Please return to the Emergency Department if symptoms worsen or any other concerns. Is patient prescribed a controlled substance at d/c from ED?: No Referrals: Clare Bourgeois NPC [REFERRING] - 1-2 days Time of Disposition: 09:21
[2024-10-07] MEDS: ACETAMINOPHEN TAB 325 MG TAB PO STA (08:12)
[2024-10-07] MEDS: SODIUM CHLORIDE 0.9% 1,000 ML IV STA (08:13)
[2024-10-07] MEDS: ONDANSETRON 4 MG/2 ML VIAL IVP STA (08:15)
[2024-10-07 08:24] LABS: Basophils % (A) 1 %; Eosinophils # (A) 0.2 k/uL (0-0.7); Eosinophils % (A) 3 %; HGB 14.2 gm/dL (11.4-16.0); Lymphocytes # (A) 1.7 k/uL (1.0-4.8); Lymphocytes % (A) 35 %; MCH 30.1 pg (25.0-35.0); MCHC 34.6 g/dL (31.0-37.0); MCV 86.8 fL (80.0-100.0); Mean Platelet Volume 7.2; Monocytes # (A) 0.3 k/uL (0-1.0); Monocytes % (A) 6 %; Neutrophils # (A) 2.7 k/uL (1.3-7.7); Neutrophils % (A) 54 %; Platelet Count 292 k/uL (150-450); RBC 4.73 m/uL (3.80-5.40); RDW 13.3 % (11.5-15.5)
[2024-10-07 08:36] LABS: ALT 21 U/L (4-34); African American GFR (CKD) >90 (>60 ml/min/1.73 sqM); Albumin 4.5 g/dL (3.5-5.0); Amylase 84 U/L (30-110); Anion Gap 10 mmol/L; Blood Urea Nitrogen 17 mg/dL (7-17); Calcium 9.2 mg/dL (8.4-10.2); Carbon Dioxide 24 mmol/L (22-30); Chloride 103 mmol/L (98-107); Glucose 86 mg/dL (74-99); Lipase 45 U/L (23-300); Non-African American GFR(CKD) >90 (>60 ml/min/1.73 sqM); Sodium 137 mmol/L (137-145); Total Bilirubin 0.5 mg/dL (0.2-1.3); Total Protein 7.3 g/dL (6.3-8.2)
[2024-10-07 08:39] LABS: AST 29 U/L (14-36); Alkaline Phosphatase 70 U/L (38-126); Potassium 4.6 mmol/L (3.5-5.1)
--- NOTE | 2024-10-07 09:11 | US ---
EXAMINATION TYPE: US gallbladder DATE OF EXAM: 10/07/2024 COMPARISON: US(01/07/2023) CLINICAL INDICATION: Female, 19 years old with history of RUQ ab pain, nausea; TECHNIQUE: Grayscale and color Doppler imaging of the right upper quadrant. FINDINGS: EXAM MEASUREMENTS: Liver Length: 14.8 cm Gallbladder Wall: 0.2 cm CBD: 0.3 cm, color Doppler imaging was utilized to isolate the common bile duct for measurement. Right Kidney: 11.2x4.2x5.2 cm WINDER TENDER NOTES: Pancreas: Tail obscured by overlying bowel gas Liver: no abnormalities seen Gallbladder: No stones seen Evidence for sonographic Lyon's sign: No CBD: wnl Right Kidney: No hydronephrosis or masses seen IMPRESSION: No evidence for acute process. [facility], , 10/07/2024 9:09 AM
[2024-10-07 09:16] LABS: Appearance,Urine Cloudy (Clear); Bilirubin,Urine Negative (Negative); Blood,Urine Negative (Negative); Color,Urine Light Yellow; Glucose,Urine (UA) Negative (Negative); Ketones,Urine Negative (Negative); Leukocyte Esterase,Urine Negative (Negative); Mucus,Urine Rare /hpf; Nitrite,Urine Negative (Negative); Protein,Urine Trace (Negative); RBC,Urine 1 /hpf (0-5); Specific Gravity,Urine 1.029 (1.001-1.035); Squamous Epithelial Cell,Urine 6 /hpf (0-4); Urobilinogen,Urine <2.0 mg/dL (<2.0); WBC,Urine 2 /hpf (0-5)
[2024-10-07 09:39] VITALS: BP 108/68; PULSE 96; TEMP 98.4
== END 2024-10-07 09:42 | disposition home or self-care (01) ==
LOC: SUPCPDRO 07:37 → EC 07:37
DX: R10.11 Right upper quadrant pain (principal); F17.290 Nicotine dependence, other tobacco product, uncomplicated
CPT/HCPCS: 36415; 80053; 82150; 83605; 83690; 85025; 81001; 81025; 76705; 99284; 96374; 96361; J2405

== ENCOUNTER 2024-11-18 07:21 | Emergency (ER) | payer OTHER ==
[2024-11-18 07:25] VITALS: TEMP 97.8
[2024-11-18 07:43] LABS: Appearance,Urine Clear (Clear); Bilirubin,Urine Negative (Negative); Blood,Urine Trace (Negative); Color,Urine Colorless; Glucose,Urine (UA) Negative (Negative); Ketones,Urine Negative (Negative); Leukocyte Esterase,Urine Negative (Negative); Mucus,Urine Rare /hpf; Nitrite,Urine Negative (Negative); PH, Urine 5.5 (5.0-8.0); Protein,Urine Negative (Negative); RBC,Urine 1 /hpf (0-5); Specific Gravity,Urine 1.026 (1.001-1.035); Squamous Epithelial Cell,Urine 1 /hpf (0-4); Urobilinogen,Urine <2.0 mg/dL (<2.0); WBC,Urine 1 /hpf (0-5)
[2024-11-18 08:50] LABS: Basophils # (A) 0.1 k/uL (0-0.2); Basophils % (A) 1 %; Eosinophils # (A) 0.3 k/uL (0-0.7); Eosinophils % (A) 5 %; HCT 39.2 % (34.0-46.0); HGB 12.9 gm/dL (11.4-16.0); Lymphocytes # (A) 1.8 k/uL (1.0-4.8); Lymphocytes % (A) 26 %; MCH 29.2 pg (25.0-35.0); MCHC 32.9 g/dL (31.0-37.0); MCV 88.7 fL (80.0-100.0); Mean Platelet Volume 6.4; Monocytes # (A) 0.4 k/uL (0-1.0); Monocytes % (A) 5 %; Neutrophils # (A) 4.1 k/uL (1.3-7.7); Neutrophils % (A) 62 %; Platelet Count 276 k/uL (150-450); RBC 4.42 m/uL (3.80-5.40); RDW 12.8 % (11.5-15.5); WBC 6.7 k/uL (3.8-10.6)
[2024-11-18 09:01] LABS: ALT 12 U/L (4-34); AST 17 U/L (14-36); African American GFR (CKD) >90 (>60 ml/min/1.73 sqM); Albumin 4.3 g/dL (3.5-5.0); Alkaline Phosphatase 87 U/L (38-126); Anion Gap 9 mmol/L; Blood Urea Nitrogen 16 mg/dL (7-17); Calcium 9.1 mg/dL (8.4-10.2); Carbon Dioxide 23 mmol/L (22-30); Chloride 103 mmol/L (98-107); Glucose 75 mg/dL (74-99); Non-African American GFR(CKD) >90 (>60 ml/min/1.73 sqM); Potassium 3.9 mmol/L (3.5-5.1); Sodium 135 mmol/L (137-145); Total Bilirubin 0.4 mg/dL (0.2-1.3)
[2024-11-18 09:18] LABS: HCG,Quantitative Serum 383.3 mIU/mL
--- NOTE | 2024-11-18 09:36 | US ---
EXAMINATION TYPE: Transabdominal DATE OF EXAM: 11/18/2024 9:05 AM COMPARISON: NONE CLINICAL INDICATION: Female, 19 years old with history of , abd and back pain; pt just got po sitive preg test yesterday, preg test was neg last week TECHNIQUE: Transvaginal (TV) and Transabdominal (TA) with grayscale and color Doppler imaging includi ng first trimester . FINDINGS: EXAM MEASUREMENTS: GESTATIONAL AGE / DATING Physician Established: Not yet established Dates by LMP: 10/19/2024s/[id number]) EDC: 07/26/2025 Dates by First Scan: No previous this is first scan Dates by Current Scan for: No IUP seen at this time MATERNAL ANATOMY Uterus: 9.9x4.8x6.5cm Calcifications seen within Cx Right Ovary: 5.1x2.3x2.5cm Left Ovary: 3.8x1.0x1.5cm Post CDS / Adnexa: small amount of fluid seen within cul de sac. anterior to Lt ovary Presence of free fluid: yes, small amount Presence of corpus luteal cyst: yes Hypoechoic/Complex area seen within Rt Ovary: 2.2x2.1x2.6cm Presence of subchorionic bleed: n/a GESTATION / SURVEY CRL: n/a Gestational Sac morphology: na Gestational Sac MSD: na Yolk Sac (normal less than 6mm): n/a Cardiac Activity/Heart Rate: n/apm Rhythm: n/a IUP: No IUP seen at this time Nuchal Translucency 10-14wks (normal less than 3mm): n/a Date of LMP: 10/19/2024 Beta HcG (if available): Not available at this time Heterogeneous anteverted uterus. Endometrial stripe not significantly thickened. No gestational sac, yolk sac, or pole is seen. Small amount of free fluid in the pelvis. Visualization of both ovaries with probable 2.2 cm corpus luteal cyst on the right. No suspicious ext ra ovarian adnexal masses IMPRESSION: Findings favor too early to visualize intrauterine but spontaneous is in differential and ectopic is not excluded. Serial beta hCG and ultrasound follow-up is ad vised. [facility], , 11/18/2024 9:34 AM
--- NOTE | 2024-11-18 10:45 | ED ---
Abdominal Pain HPI - General Chief Complaint: Abdominal Pain Stated Complaint: abdominal and back pain Time Seen by Provider: 11/18/24 07:30 Source: patient Mode of arrival: ambulatory Limitations: no limitations - History of Present Illness Initial Comments: 19-year-old female presents to the emergency department reporting right flank pain and right upper lower abdominal pain. States that she took a test and found out that she was . She denies have any vaginal bleeding or discharge. She has not been seen for this yet. She denies dysuria, hematuria or difficulty voiding. Denies diarrhea, constipation, black or bloody stools. No chest pain or difficulty breathing. Pain is described as an ache and is better with movement. States it feels stiff at rest. No other alleviating, precipitating or modifying factors - Related Data Home Medications Medication Instructions Recorded Confirmed Amoxicillin 500 mg PO Q8H 10/09/23 10/09/23 methylPREDNISolone Dose Pack See Taper PO DIRECTED 10/09/23 10/09/23 [Medrol Dose Pack] Previous Rx's Medication Instructions Recorded hydrOXYzine HCL [Atarax] 50 mg PO Q6H PRN #10 tablet 10/08/23 Sucralfate [Carafate] 1 gm PO ACHS #60 tab 10/09/23 Allergies Allergy/AdvReac Type Severity Reaction Status Date / Time No Known Allergies Allergy Verified 10/07/24 07:42 Review of Systems ROS Statement: Those systems with pertinent positive or pertinent negative responses have been documented in the HPI. ROS Other: All systems not noted in ROS Statement are negative. Past Medical History Past Medical History: No Reported History Additional Past Medical History / Comment(s): Previous term vaginal delivery baby boy History of Any Multi-Drug Resistant Organisms: None Reported Past Surgical History: No Surgical Hx Reported Past Anesthesia/Blood Transfusion Reactions: No Reported Reaction Past Psychological History: Anxiety, Depression Smoking Status: Vaper Past Alcohol Use History: None Reported Past Drug Use History: Marijuana - Past Family History Mother Family Medical History: No Reported History Father Family Medical History: No Reported History General Exam Limitations: no limitations General appearance: alert, in no apparent distress Head exam: Present: atraumatic, normocephalic, normal inspection Eye exam: Present: normal appearance, PERRL, EOMI. Absent: scleral icterus, conjunctival injection, periorbital swelling ENT exam: Present: normal exam, mucous membranes moist Neck exam: Present: normal inspection. Absent: tenderness, meningismus, lymphadenopathy Respiratory exam: Present: normal lung sounds bilaterally. Absent: respiratory distress, wheezes, rales, rhonchi, stridor Cardiovascular Exam: Present: regular rate, normal rhythm, normal heart sounds. Absent: systolic murmur, diastolic murmur, rubs, gallop, clicks GI/Abdominal exam: Present: soft, normal bowel sounds. Absent: distended, tenderness, guarding, rebound, rigid Extremities exam: Present: normal inspection, full ROM, normal capillary refill. Absent: tenderness, pedal edema, joint swelling, calf tenderness Back exam: Present: normal inspection Neurological exam: Present: alert, oriented X3, CN II-XII intact Psychiatric exam: Present: normal affect, normal mood Skin exam: Present: warm, dry, intact, normal color. Absent: rash Course Vital Signs 11/18/24 11/18/24 07:23 11:01 Temperature 97.8 F Pulse Rate 84 80 Respiratory 18 20 Rate Blood Pressure 121/70 103/71 O2 Sat by Pulse 100 99 Oximetry Medical Decision Making - Medical Decision Making Was pt. sent in by a medical professional or institution (, PA, DESIGN SUPERVISOR, urgent care, hospital, or custodial...) When possible be specific @ -No Did you speak to anyone other than the patient for history (EMS, parent, family, police, friend...)? What history was obtained from this source @ -No Did you review nursing and triage notes (agree or disagree)? Why? @ -I reviewed and agree with nursing and triage notes Were old charts reviewed (outside hosp., previous admission, EMS record, old EKG, old radiological studies, urgent care reports/EKG's, custodial records)? Report findings @ -No old charts were reviewed Differential Diagnosis (chest pain, altered mental status, abdominal pain women, abdominal pain men, vaginal bleeding, weakness, fever, dyspnea, syncope, headache, dizziness, GI bleed, back pain, seizure, CVA, palpatations, mental health, musculoskeletal)? @ -Differential Abdominal Pain Women: Appendicitis, Cholecystitis, diverticulosis, ischemic bowel, pancreatitis, hep atitis, UTI, gastroenteritis, AAA, incarcerated hernia, bowel obstruction, constipation, inflammatory bowel, hepatitis, peptic ulcer disease, splenic infarction, perforated viscus, vulvitis, ovarian torsion, PID, kidney stone, placenta abruption, this is not meant to be an all-inclusive list EKG interpreted by me (3pts min.). @ -Not done X-rays interpreted by me (1pt min.). @ -None done CT interpreted by me (1pt min.). @ -None done U/S interpreted by me (1pt. min.). @ -Yes which does not demonstrate an intrauterine at this time What testing was considered but not performed or refused? (CT, X-rays, U/S, labs)? Why? @ -None What meds were considered but not given or refused? Why? @ -None Did you discuss the management of the patient with other professionals (professionals i.e. , PA, DESIGN SUPERVISOR, lab, RT, psych nurse, social work manager, director of maternity services, teacher, traffic control officer, rn case mgr)? Give summary @ -No Was smoking cessation discussed for >3mins.? @ -No Was critical care preformed (if so, how long)? @ -No Were there social determinants of health that impacted care today? How? (H omelessness, low income, unemployed, alcoholism, drug addiction, transportation, low edu. Level, literacy, decrease access to med. care, fpc, rehab)? @ -No Was there de-escalation of care discussed even if they declined (Discuss DNR or withdrawal of care, Hospice)? DNR status @ -No What co-morbidities impacted this encounter? (DM, HTN, Smoking, COPD, CAD, Cancer, CVA, ARF, Chemo, Hep., AIDS, mental health diagnosis, sleep apnea, morbid obesity)? @ -None Was patient admitted / discharged? Hospital course, mention meds given and route, prescriptions, significant lab abnormalities, going to OR and other pertinent info. @ -Upon arrival patient seen and evaluated in [place] [id number]. Thorough history and physical exam was performed. IV access was established. Laboratory studies are conducted. Ultrasound was performed. Ultrasound does not demonstrate an intrauterine . Beta quant is low at this time. Results are discussed with the patient. Informed her that she must follow-up in 48 hours to have her labs redrawn. These results will be sent to her primary care and [facility] PROFESSOR. Tez chow will also be able to access her results in the [facility]. The beta quant must double at this time. Patient made aware that she does not have an intrauterine and differential includes early versus ectopic versus miscarriage. Patient will need repeat ultrasound in 2 weeks. Return for any new or worsening symptoms. Patient agreeable with plan was discharged in stable condition Undiagnosed new problem with uncertain prognosis? @ -No Drug Therapy requiring intensive monitoring for toxicity (Heparin, Nitro, Insulin, Cardizem)? @ -No Were any procedures done? @ -No Diagnosis/symptom? @ -Acute flank painright, positive of undetermined location Acute, or Chronic, or Acute on Chronic? @ -Acute Uncomplicated (without systemic symptoms) or Complicated (systemic symptoms)? @ -Complicated Side effects of treatment? @ -No Exacerbation, Progression, or Severe Exacerbation? @ -No Poses a threat to life or bodily function? How? (Chest pain, [place], GA, pneumonia, PE, COPD, DKA, ARF, appy, cholecystitis, CVA, Diverticulitis, Homicidal, Suicidal, threat to staff... and all critical care pts) @ -Yes as location of is not known at this time - Lab Data Result diagrams: 11/18/24 08:19 11/18/24 08:19 Lab Results 11/18/24 11/18/24 11/18/24 Range/Units 07:26 07:26 08:19 WBC 6.7 (3.8-10.6) k/uL RBC 4.42 (3.80-5.40) m/uL Hgb 12.9 (11.4-16.0) gm/dL Hct 39.2 (34.0-46.0) % MCV 88.7 (80.0-100.0) fL MCH 29.2 (25.0-35.0) pg MCHC 32.9 (31.0-37.0) g/dL RDW 12.8 (11.5-15.5) % Plt Count 276 (150-450) k/uL MPV 6.4 Neutrophils % 62 % Lymphocytes % 26 % Monocytes % 5 % Eosinophils % 5 % Basophils % 1 % Neutrophils # 4.1 (1.3-7.7) k/uL Lymphocytes # 1.8 (1.0-4.8) k/uL Monocytes # 0.4 (0-1.0) k/uL Eosinophils # 0.3 (0-0.7) k/uL Basophils # 0.1 (0-0.2) k/uL Sodium (137-145) mmol/L Potassium (3.5-5.1) mmol/L Chloride (98-107) mmol/L Carbon Dioxide (22-30) mmol/L Anion Gap mmol/L BUN (7-17) mg/dL Creatinine (0.52-1.04) mg/dL Est GFR (CKD-EPI)AfAm (>60 ml/min/1.73 sqM) Est GFR (CKD-EPI)NonAf (>60 ml/min/1.73 sqM) Glucose (74-99) mg/dL Calcium (8.4-10.2) mg/dL Total Bilirubin (0.2-1.3) mg/dL AST (14-36) U/L ALT (4-34) U/L Alkaline Phosphatase (38-126) U/L Total Protein (6.3-8.2) g/dL Albumin (3.5-5.0) g/dL HCG, Quant mIU/mL Urine Color Colorless Urine Appearance Clear (Clear) Urine pH 5.5 (5.0-8.0) Ur Specific [place] 1.026 (1.001-1.035) Urine Protein Negative (Negative) Urine Glucose (UA) Negative (Negative) Urine Ketones Negative (Negative) Urine Blood Trace H (Negative) Urine Nitrite Negative (Negative) Urine Bilirubin Negative (Negative) Urine Urobilinogen <2.0 (<2.0) mg/dL Ur Leukocyte Esterase Negative (Negative) Urine RBC 1 (0-5) /hpf Urine WBC 1 (0-5) /hpf Ur Squamous Epith Cells 1 (0-4) /hpf Urine Mucus Rare H (None) /hpf Urine HCG, Qual Detected (Not Detectd) Blood Type Blood Type Recheck Bld Type Recheck Status Antibody Screen Spec Expiration Date 11/18/24 11/18/24 Range/Units 08:19 08:35 WBC (3.8-10.6) k/uL RBC (3.80-5.40) m/uL Hgb (11.4-16.0) gm/dL Hct (34.0-46.0) % MCV (80.0-100.0) fL MCH (25.0-35.0) pg MCHC (31.0-37.0) g/dL RDW (11.5-15.5) % Plt Count (150-450) k/uL MPV Neutrophils % % Lymphocytes % % Monocytes % % Eosinophils % % Basophils % % Neutrophils # (1.3-7.7) k/uL Lymphocytes # (1.0-4.8) k/uL Monocytes # (0-1.0) k/uL Eosinophils # (0-0.7) k/uL Basophils # (0-0.2) k/uL Sodium 135 L (137-145) mmol/L Potassium 3.9 (3.5-5.1) mmol/L Chloride 103 (98-107) mmol/L Carbon Dioxide 23 (22-30) mmol/L Anion Gap 9 mmol/L BUN 16 (7-17) mg/dL Creatinine 0.67 (0.52-1.04) mg/dL Est GFR (CKD-EPI)AfAm >90 (>60 ml/min/1.73 sqM) Est GFR (CKD-EPI)NonAf >90 (>60 ml/min/1.73 sqM) Glucose 75 (74-99) mg/dL Calcium 9.1 (8.4-10.2) mg/dL Total Bilirubin 0.4 (0.2-1.3) mg/dL AST 17 (14-36) U/L ALT 12 (4-34) U/L Alkaline Phosphatase 87 (38-126) U/L Total Protein 7.0 (6.3-8.2) g/dL Albumin 4.3 (3.5-5.0) g/dL HCG, Quant 383.3 mIU/mL Urine Color Urine Appearance (Clear) Urine pH (5.0-8.0) Ur Specific [place] (1.001-1.035) Urine Protein (Negative) Urine Glucose (UA) (Negative) Urine Ketones (Negative) Urine Blood (Negative) Urine Nitrite (Negative) Urine Bilirubin (Negative) Urine Urobilinogen (<2.0) mg/dL Ur Leukocyte Esterase (Negative) Urine RBC (0-5) /hpf Urine WBC (0-5) /hpf Ur Squamous Epith Cells (0-4) /hpf Urine Mucus (None) /hpf Urine HCG, Qual (Not Detectd) Blood Type O Positive Blood Type Recheck O Pos Bld Type Recheck Status No Antibody Screen NEGATIVE Spec Expiration Date 11/21/20242334 Disposition Clinical Impression: Flank pain, Positive test Disposition: HOME SELF-CARE Condition: Stable Instructions (If sedation given, give patient instructions): (ED) Additional Instructions: Please come to the outpatient lab in 48 hours to have your labs redrawn. The outpatient lab is open from 9 AM to noon. The results will be in your MyChart and sent to your [facility] PROFESSOR. This number must double in 2 days. If you have any new or worsening symptoms, return to the emergency department. You must have a repeat ultrasound in 2 weeks. Please start taking a vitamin. Is patient prescribed a controlled substance at d/c from ED?: No Referrals: Reji Mohan MD [Primary Care Provider] - 1-2 days Norma Rivers DO [Doctor of Osteopathic Medicine] - 1-2 days Time of Disposition: 10:44
[2024-11-18 11:04] VITALS: BP 103/71; PULSE 80; RESP 20
== END 2024-11-18 11:03 | disposition home or self-care (01) ==
LOC: EC 07:21
DX: Z32.01 Encounter for pregnancy test, result positive (principal); O26.891 Other specified pregnancy related conditions, first trimester; R10.31 Right lower quadrant pain; O99.331 Smoking (tobacco) complicating pregnancy, first trimester; F17.290 Nicotine dependence, other tobacco product, uncomplicated; Z3A.00 Weeks of gestation of pregnancy not specified
CPT/HCPCS: 36415; 76801; 76817; 80053; 81001; 81025; 84702; 85025; 86850; 86900; 86901; 99284

== ENCOUNTER 2024-11-28 14:39 | Emergency (ER) | payer OTHER ==
[2024-11-28 14:44] VITALS: BP 123/83; PULSE 91; RESP 18; TEMP 98.3
[2024-11-28 15:54] LABS: Appearance,Urine Clear (Clear); Bilirubin,Urine Negative (Negative); Blood,Urine Moderate (Negative); Color,Urine Light Yellow; Glucose,Urine (UA) Negative (Negative); Ketones,Urine Negative (Negative); Leukocyte Esterase,Urine Negative (Negative); Mucus,Urine Rare /hpf; Nitrite,Urine Negative (Negative); Protein,Urine Negative (Negative); RBC,Urine 1 /hpf (0-5); Squamous Epithelial Cell,Urine 4 /hpf (0-4); Urobilinogen,Urine <2.0 mg/dL (<2.0); WBC,Urine 2 /hpf (0-5)
[2024-11-28 16:23] LABS: Basophils % (A) 1 %; Eosinophils # (A) 0.1 k/uL (0-0.7); Eosinophils % (A) 1 %; HCT 40.1 % (34.0-46.0); HGB 13.3 gm/dL (11.4-16.0); Lymphocytes # (A) 1.3 k/uL (1.0-4.8); Lymphocytes % (A) 26 %; MCH 29.6 pg (25.0-35.0); MCHC 33.1 g/dL (31.0-37.0); MCV 89.4 fL (80.0-100.0); Mean Platelet Volume 6.4; Monocytes # (A) 0.3 k/uL (0-1.0); Monocytes % (A) 6 %; Neutrophils # (A) 3.4 k/uL (1.3-7.7); Neutrophils % (A) 65 %; Platelet Count 313 k/uL (150-450); RBC 4.49 m/uL (3.80-5.40); RDW 12.7 % (11.5-15.5); WBC 5.2 k/uL (3.8-10.6)
[2024-11-28 16:38] LABS: ALT 18 U/L (4-34); AST 17 U/L (14-36); African American GFR (CKD) >90 (>60 ml/min/1.73 sqM); Albumin 4.3 g/dL (3.5-5.0); Alkaline Phosphatase 66 U/L (38-126); Anion Gap 9 mmol/L; Blood Urea Nitrogen 8 mg/dL (7-17); Carbon Dioxide 25 mmol/L (22-30); Chloride 104 mmol/L (98-107); Glucose 83 mg/dL (74-99); Non-African American GFR(CKD) >90 (>60 ml/min/1.73 sqM); Potassium 3.9 mmol/L (3.5-5.1); Sodium 138 mmol/L (137-145); Total Bilirubin 0.6 mg/dL (0.2-1.3); Total Protein 6.9 g/dL (6.3-8.2)
[2024-11-28 16:41] LABS: Partial Thromboplastin Time 27.1 sec (22.0-30.0); Prothrombin Time 11.3 sec (10.0-12.5)
[2024-11-28 16:46] LABS: NT-Pro-B-Type Natriuretic Pept 188 pg/mL
[2024-11-28 16:58] LABS: Influenza A Not Detected (Not Detectd); Influenza B Not Detected (Not Detectd); RSV Not Detected (Not Detectd)
--- NOTE | 2024-11-28 20:19 | ED ---
General Adult HPI - General Chief complaint: Vaginal Bleeding Stated complaint: poss miscarriage Time Seen by Provider: 11/28/24 14:45 Source: patient Mode of arrival: wheelchair Limitations: no limitations - History of Present Illness Initial comments: Patient is a 19 y/o female presenting for vaginal bleeding. First day of her last menstrual period was mid September. She has had a positive test since then and came to the emergency department approximately 1 week ago, had an ultrasound performed at that time that did not show an intrauterine and was told to follow-up with OB. 2 to 3 days ago she began having light brown spotting that has progressed to heavier bleeding this morning. States she has gone through 1 tampon today so far and that she is not passing any clots but feels that she is bleeding more than she should be since she is currently . Endorses lower abdominal and low back sharp and cramping pains. Attempted Tylenol about 3 hours prior to arrival without relief. Denies any vaginal discharge/concerns for STIs. Denies dysuria or urinary frequency. Denies nausea and vomiting, melena or hematochezia. Did have 5 loose stools in the last 24 hours. No fevers, did endorse some chills earlier today. Also notes that over the last week she has had some exertional dyspnea when walking up stairs. Denies cough or hemoptysis. Denies a history of cancer, is a non- smoker. No history of blood clots or bleeding disorders. No recent travel surgeries or hospitalizations. No chest pain. Currently denies dizziness/lightheadedness though does states she does get somewhat dizzy when she does not eat. - Related Data Home Medications Medication Instructions Recorded Confirmed Amoxicillin 500 mg PO Q8H 10/09/23 10/09/23 methylPREDNISolone Dose Pack See Taper PO DIRECTED 10/09/23 10/09/23 [Medrol Dose Pack] Previous Rx's Medication Instructions Recorded hydrOXYzine HCL [Atarax] 50 mg PO Q6H PRN #10 tablet 10/08/23 Sucralfate [Carafate] 1 gm PO ACHS #60 tab 10/09/23 Allergies Allergy/AdvReac Type Severity Reaction Status Date / Time No Known Allergies Allergy Verified 10/07/24 07:42 Review of Systems ROS Statement: Those systems with pertinent positive or pertinent negative responses have been documented in the HPI. ROS Other: All systems not noted in ROS Statement are negative. Past Medical History Past Medical History: No Reported History Additional Past Medical History / Comment(s): Previous term vaginal delivery baby boy History of Any Multi-Drug Resistant Organisms: None Reported Past Surgical History: No Surgical Hx Reported Past Anesthesia/Blood Transfusion Reactions: No Reported Reaction Past Psychological History: Anxiety, Depression Smoking Status: Vaper Past Alcohol Use History: None Reported Past Drug Use History: Marijuana - Past Family History Mother Family Medical History: No Reported History Father Family Medical History: No Reported History General Exam - General Exam Comments Initial Comments: PE: CONSTITUTIONAL: No apparent distress, well appearing SKIN: Warm, dry, no jaundice, hives or petechiae EYES: Pupils are equally round, extraocular movements intact without nystagmus, clear conjunctiva, non-icteric sclera HENT: Normocephalic, atraumatic, moist mucus membranes, oropharynx clear without exudates NECK: , Full range of motion, normal appearance PULMONARY: Clear to auscultation without wheezes, rhonchi, or rales, normal excursion, no accessory muscle use and no stridor CARDIOVASCULAR: Regular rate, rhythm, normal S1 and S2. No appreciated murmurs, rubs or gallops. Strong radial pulses with intact distal perfusion. No lower extremity edema GASTROINTESTINAL: Soft, active bowel sounds throughout, non-tender, non- distended, no palpable masses, no rebound or guarding. No hepatosplenomegaly MUSCULOSKELETAL: Extremities have no gross deformity, no edema, redness, or swelling. No calf swelling, generalized bilateral lumbar paraspinal muscle TTP NEUROLOGIC:_a/o x 3, GCS 15, normal mentation and speech. Moves all extremities x 4 without motor or sensory deficit PSYCHIATRIC:_normal mood and affect, thought process is clear and linear Limitations: no limitations Course Vital Signs 11/28/24 14:40 Temperature 98.3 F Pulse Rate 91 Respiratory 18 Rate Blood Pressure 123/83 O2 Sat by Pulse 100 Oximetry EKG Findings - EKG Comments: EKG Findings:: Sinus rhythm, rate 79 bpm IN interval 147 ms QT/QTc 374/409 ms, normal axis, no ST elevations or depressions, no ischemic changes, no STEMI or arrhythmia Medical Decision Making - Medical Decision Making Was pt. sent in by a medical professional or institution (, PA, METAL MOLD DRESSER, urgent care, hospital, or [place] [facility] facility...) When possible be specific @ -No Did you speak to anyone other than the patient for history (EMS, parent, family, police, friend...)? What history was obtained from this source @ -No Did you review nursing and triage notes (agree or disagree)? Why? @ -I reviewed nursing and triage notes Were old charts reviewed (outside hosp., previous admission, EMS record, old EKG, old radiological studies, urgent care reports/EKG's, [place] [facility] facility records)? Report findings @ -Medical records reviewed-patient was here on 11/18/2024, at that time ultrasound showed no intrauterine , ectopic had not been excluded at that time, At that time beta-hCG was 383.3 Differential Diagnosis (chest pain, altered mental status, abdominal pain women, abdominal pain men, vaginal bleeding, weakness, fever, dyspnea, syncope, headache, dizziness, GI bleed, back pain, seizure, CVA, palpatations, mental health, musculoskeletal)? Differential diagnosis remains broad however top considerations include ectopic , intrauterine with subchorionic hemorrhage, threatened misca rriage, completed miscarriage inevitable miscarriage, ovarian torsion, PID, normal menstrual cycle this is not all-inclusive list Regarding patient's exertional dyspnea, differential diagnosis remains broad however top considerations include normal physiologic changes of , asthma, COPD, pneumonia, PE, CHF, ACS, anemia, this is not all-inclusive list EKG interpreted by me (3pts min.). @ -As above X-rays interpreted by me (1pt min.). @ -None done CT interpreted by me (1pt min.). @ -None done U/S interpreted by me (1pt. min.). Patient left AMA prior to ultrasound being completed What testing was considered but not performed or refused? (CT, X-rays, U/S, labs)? Why? @Imaging of the chest was not ordered given pending D-dimer, if D-dimer within normal limits will discuss with patient chest x-ray,, if elevated will discuss plan for CT PE study What meds were considered but not given or refused? Why? @ -None Did you discuss the management of the patient with other professionals (pr ofessionals i.e. , PA, METAL MOLD DRESSER, lab, RT, psych nurse, social services designee, radio antenna installer, teacher, safety instruction police officer, outsole caser)? Give summary @ -No Was smoking cessation discussed for >3mins.? @ -No Was critical care preformed (if so, how long)? @ -No Were there social determinants of health that impacted care today? How? (Homelessness, low income, unemployed, alcoholism, drug addiction, transportation, low edu. Level, literacy, decrease access to med. care, usp, rehab)? @ -No Was there de-escalation of care discussed even if they declined (Discuss DNR or withdrawal of care, Hospice)? @ -No What co-morbidities impacted this encounter? (DM, HTN, Smoking, COPD, CAD, Cancer, CVA, ARF, Chemo, Hep., AIDS, mental health diagnosis, sleep apnea, morbid obesity)? @ -None Was patient admitted / discharged? Hospital course, mention meds given and route, prescriptions, significant lab abnormalities, going to OR and other pertinent info. @Left AGAINST MEDICAL ADVICE-this is a pleasant 19-year-old female presenting today for vaginal bleeding. Vital signs within acceptable limits on arrival, no hypotension, fever, hypoxia or tachycardia noted. On my assessment patient is well-appearing, resting comfortably no acute distress. Exam significant for lungs clear to auscultation bilaterally, normal S1-S2 on cardiac exam, soft and nontender abdomen with active bowel sounds, no peritoneal signs, generalized p araspinal muscle tenderness to palpation, no lower extremity swelling. Given vaginal bleeding in the setting of a positive beta-hCG approximately 1 week ago we will obtain a pelvic ultrasound to assess for intrauterine versus ectopic , hCG, type and cross, CBC, CMP, urinalysis. In addition patient did incidentally note exertional dyspnea over the course of the last week. For this reason we will obtain EKG, single troponin-as symptoms have been ongoing for 1 week and she has no chest pain currently, D-dimer. Imaging of the chest will be decided upon after D-dimer results so as to avoid unnecessary radiation exposure. Patient left AGAINST MEDICAL ADVICE. I was not alerted to her departure until after she had left the emergency department. Labs had resulted showed no leukocytosis, no anemia, D-dimer 0.22, troponin undetectable, BNP 188, CMP otherwise unremarkable, hCG and US pending, urinalysis with moderate blood and rare mucus. Undiagnosed new problem with uncertain prognosis? @ -No Drug Therapy requiring intensive monitoring for toxicity (Heparin, Nitro, Insulin, Cardizem)? @ -No Were any procedures done? @ -No Diagnosis/symptom? @Vaginal bleeding Acute, or Chronic, or Acute on Chronic? @Acute Uncomplicated (without systemic symptoms) or Complicated (systemic symptoms)? @Complicated Side effects of treatment? @ -No Exacerbation, Progression, or Severe Exacerbation? @ -No Poses a threat to life or bodily function? How? (Chest pain, [place], [place], pneumonia, PE, COPD, DKA, ARF, appy, cholecystitis, CVA, Diverticulitis, Homicidal, Suicidal, threat to staff... and all critical care pts) @Potentially, if secondary to ectopic - Lab Data Result diagrams: 11/28/24 16:03 11/28/24 16:03 Lab Results 11/28/24 11/28/24 11/28/24 Range/Units 15:30 16:03 16:03 WBC 5.2 (3.8-10.6) k/uL RBC 4.49 (3.80-5.40) m/uL Hgb 13.3 (11.4-16.0) gm/dL Hct 40.1 (34.0-46.0) % MCV 89.4 (80.0-100.0) fL MCH 29.6 (25.0-35.0) pg MCHC 33.1 (31.0-37.0) g/dL RDW 12.7 (11.5-15.5) % Plt Count 313 (150-450) k/uL MPV 6.4 Neutrophils % 65 % Lymphocytes % 26 % Monocytes % 6 % Eosinophils % 1 % Basophils % 1 % Neutrophils # 3.4 (1.3-7.7) k/uL Lymphocytes # 1.3 (1.0-4.8) k/uL Monocytes # 0.3 (0-1.0) k/uL Eosinophils # 0.1 (0-0.7) k/uL Basophils # 0.0 (0-0.2) k/uL PT 11.3 (10.0-12.5) sec INR 1.0 (<1.2) APTT 27.1 (22.0-30.0) sec D-Dimer 0.22 (<0.60) mg/L FEU Sodium (137-145) mmol/L Potassium (3.5-5.1) mmol/L Chloride (98-107) mmol/L Carbon Dioxide (22-30) mmol/L Anion Gap mmol/L BUN (7-17) mg/dL Creatinine (0.52-1.04) mg/dL Est GFR (CKD-EPI)AfAm (>60 ml/min/1.73 sqM) Est GFR (CKD-EPI)NonAf (>60 ml/min/1.73 sqM) Glucose (74-99) mg/dL Calcium (8.4-10.2) mg/dL Total Bilirubin (0.2-1.3) mg/dL AST (14-36) U/L ALT (4-34) U/L Alkaline Phosphatase (38-126) U/L Troponin I (0.000-0.034) ng/mL NT-Pro-B Natriuret Pep pg/mL Total Protein (6.3-8.2) g/dL Albumin (3.5-5.0) g/dL Urine Color Light Yellow Urine Appearance Clear (Clear) Urine pH 6.0 (5.0-8.0) Ur Specific Mccune 1.020 (1.001-1.035) Urine Protein Negative (Negative) Urine Glucose (UA) Negative (Negative) Urine Ketones Negative (Negative) Urine Blood Moderate H (Negative) Urine Nitrite Negative (Negative) Urine Bilirubin Negative (Negative) Urine Urobilinogen <2.0 (<2.0) mg/dL Ur Leukocyte Esterase Negative (Negative) Urine RBC 1 (0-5) /hpf Urine WBC 2 (0-5) /hpf Ur Squamous Epith Cells 4 (0-4) /hpf Urine Mucus Rare H (None) /hpf Influenza Type A (PCR) (Not Detectd) Influenza Type B (PCR) (Not Detectd) RSV (PCR) (Not Detectd) SARS-CoV-2 (PCR) (Not Detectd) Blood Type Blood Type Recheck Bld Type Recheck Status Antibody Screen Spec Expiration Date 11/28/24 11/28/24 11/28/24 Range/Units 16:03 16:03 16:09 WBC (3.8-10.6) k/uL RBC (3.80-5.40) m/uL Hgb (11.4-16.0) gm/dL Hct (34.0-46.0) % MCV (80.0-100.0) fL MCH (25.0-35.0) pg MCHC (31.0-37.0) g/dL RDW (11.5-15.5) % Plt Count (150-450) k/uL MPV Neutrophils % % Lymphocytes % % Monocytes % % Eosinophils % % Basophils % % Neutrophils # (1.3-7.7) k/uL Lymphocytes # (1.0-4.8) k/uL Monocytes # (0-1.0) k/uL Eosinophils # (0-0.7) k/uL Basophils # (0-0.2) k/uL PT (10.0-12.5) sec INR (<1.2) APTT (22.0-30.0) sec D-Dimer (<0.60) mg/L FEU Sodium 138 (137-145) mmol/L Potassium 3.9 (3.5-5.1) mmol/L Chloride 104 (98-107) mmol/L Carbon Dioxide 25 (22-30) mmol/L Anion Gap 9 mmol/L BUN 8 (7-17) mg/dL Creatinine 0.57 (0.52-1.04) mg/dL Est GFR (CKD-EPI)AfAm >90 (>60 ml/min/1.73 sqM) Est GFR (CKD-EPI)NonAf >90 (>60 ml/min/1.73 sqM) Glucose 83 (74-99) mg/dL Calcium 9.0 (8.4-10.2) mg/dL Total Bilirubin 0.6 (0.2-1.3) mg/dL AST 17 (14-36) U/L ALT 18 (4-34) U/L Alkaline Phosphatase 66 (38-126) U/L Troponin I <0.012 (0.000-0.034) ng/mL NT-Pro-B Natriuret Pep 188 pg/mL Total Protein 6.9 (6.3-8.2) g/dL Albumin 4.3 (3.5-5.0) g/dL Urine Color Urine Appearance (Clear) Urine pH (5.0-8.0) Ur Specific Mccune (1.001-1.035) Urine Protein (Negative) Urine Glucose (UA) (Negative) Urine Ketones (Negative) Urine Blood (Negative) Urine Nitrite (Negative) Urine Bilirubin (Negative) Urine Urobilinogen (<2.0) mg/dL Ur Leukocyte Esterase (Negative) Urine RBC (0-5) /hpf Urine WBC (0-5) /hpf Ur Squamous Epith Cells (0-4) /hpf Urine Mucus (None) /hpf Influenza Type A (PCR) Not Detected (Not Detectd) Influenza Type B (PCR) Not Detected (Not Detectd) RSV (PCR) Not Detected (Not Detectd) SARS-CoV-2 (PCR) Not Detected (Not Detectd) Blood Type Blood Type Recheck Bld Type Recheck Status Antibody Screen Spec Expiration Date 11/28/24 Range/Units 16:10 WBC (3.8-10.6) k/uL RBC (3.80-5.40) m/uL Hgb (11.4-16.0) gm/dL Hct (34.0-46.0) % MCV (80.0-100.0) fL MCH (25.0-35.0) pg MCHC (31.0-37.0) g/dL RDW (11.5-15.5) % Plt Count (150-450) k/uL MPV Neutrophils % % Lymphocytes % % Monocytes % % Eosinophils % % Basophils % % Neutrophils # (1.3-7.7) k/uL Lymphocytes # (1.0-4.8) k/uL Monocytes # (0-1.0) k/uL Eosinophils # (0-0.7) k/uL Basophils # (0-0.2) k/uL PT (10.0-12.5) sec INR (<1.2) APTT (22.0-30.0) sec D-Dimer (<0.60) mg/L FEU Sodium (137-145) mmol/L Potassium (3.5-5.1) mmol/L Chloride (98-107) mmol/L Carbon Dioxide (22-30) mmol/L Anion Gap mmol/L BUN (7-17) mg/dL Creatinine (0.52-1.04) mg/dL Est GFR (CKD-EPI)AfAm (>60 ml/min/1.73 sqM) Est GFR (CKD-EPI)NonAf (>60 ml/min/1.73 sqM) Glucose (74-99) mg/dL Calcium (8.4-10.2) mg/dL Total Bilirubin (0.2-1.3) mg/dL AST (14-36) U/L ALT (4-34) U/L Alkaline Phosphatase (38-126) U/L Troponin I (0.000-0.034) ng/mL NT-Pro-B Natriuret Pep pg/mL Total Protein (6.3-8.2) g/dL Albumin (3.5-5.0) g/dL Urine Color Urine Appearance (Clear) Urine pH (5.0-8.0) Ur Specific Mccune (1.001-1.035) Urine Protein (Negative) Urine Glucose (UA) (Negative) Urine Ketones (Negative) Urine Blood (Negative) Urine Nitrite (Negative) Urine Bilirubin (Negative) Urine Urobilinogen (<2.0) mg/dL Ur Leukocyte Esterase (Negative) Urine RBC (0-5) /hpf Urine WBC (0-5) /hpf Ur Squamous Epith Cells (0-4) /hpf Urine Mucus (None) /hpf Influenza Type A (PCR) (Not Detectd) Influenza Type B (PCR) (Not Detectd) RSV (PCR) (Not Detectd) SARS-CoV-2 (PCR) (Not Detectd) Blood Type O Positive Blood Type Recheck O Pos Bld Type Recheck Status No Antibody Screen NEGATIVE Spec Expiration Date 12/01/20242309 Disposition Clinical Impression: Vaginal bleeding Disposition: LEFT AGAINST MEDICAL ADVICE Condition: Undetermined Is patient prescribed a controlled substance at d/c from ED?: No Referrals: Reji Mohan MD [Primary Care Provider] - 1-2 days
== END 2024-11-28 18:00 | disposition left against medical advice (07) ==
LOC: EC 14:39
DX: N93.9 Abnormal uterine and vaginal bleeding, unspecified (principal); M54.50 Low back pain, unspecified; F17.290 Nicotine dependence, other tobacco product, uncomplicated; Z53.29 Procedure and treatment not carried out because of patient's decision for other reasons
CPT/HCPCS: 36415; 80053; 81001; 83880; 84484; 84702; 85025; 85379; 85610; 85730; 86850; 86900; 86901; 87636; 93005; 99284